=== PATIENT | male | born 1945 | race Caucasian/White ===

== ENCOUNTER → 2019-11-05 15:51 | Outpatient (BNVA) | payer OTHER, SELFPAY | PROVIDERS: Family Provider Emergency Medicine Emergency Medical Services; Visit Provider Nurse Practitioner Family | DX: R31.0 Gross hematuria (principal) | CPT/HCPCS: 80053; 81001; 84153 ==

== ENCOUNTER → 2019-12-23 11:24 | Outpatient (BNVA) | payer OTHER, SELFPAY | PROVIDERS: Family Provider Emergency Medicine Emergency Medical Services; Visit Provider Urology | DX: R31.0 Gross hematuria (principal); N40.0 Benign prostatic hyperplasia without lower urinary tract symptoms; N42.1 Congestion and hemorrhage of prostate | CPT/HCPCS: 80053; 81001; 88112 ==

== ENCOUNTER 2020-01-08 13:59 | Outpatient (CLI) | payer OTHER, SELFPAY ==
--- NOTE | 2020-01-08 14:15 | US_ITS ---
WS: [id number] RENAL ULTRASOUND REASON FOR EXAM: RENAL U/S@[facility] [place] 01/08/20@2:00PM. APPT TO FOLLOW TECHNIQUE: Grayscale and Doppler ultrasound examination of the kidneys. FINDINGS: Right kidney: Right kidney measures 9.7 cm x 4.9 cm x 4.7 cm. No hydronephrosis Left kidney: Left kidney measures 10.4 cm x 6.7 cm x 6.0 cm. No hydronephrosis The prostate appears to be enlarged measures 5.35 cm. The bladder is contracted. The aorta was normal. A 3.45 x 2.10 x 1.80 cm mass is seen along the right kidney this appears to be solid. US/US renal BI* [id number] IMPRESSION: The right kidney shows a solid lesion greater than 3 cm suggesting a tumor. Con sideration of CT with contrast to evaluate this lesion. The prostate is enlarged.
== END 2020-01-08 14:00 | disposition home or self-care (01) ==
LOC: RAD 14:02
PROVIDERS: PCP Emergency Medicine Emergency Medical Services; Visit Provider Urology
DX: R31.0 Gross hematuria (principal); N28.9 Disorder of kidney and ureter, unspecified; N40.0 Benign prostatic hyperplasia without lower urinary tract symptoms
CPT/HCPCS: 76770; 81001

== ENCOUNTER 2020-02-04 12:42 | Inpatient (IN) | payer OTHER, SELFPAY ==
[2020-02-04] VITALS (9 sets, daily range): BP systolic 108–150; BP diastolic 72–90; PULSE 67–91; RESP 14–20; TEMP 36.4–36.6; O2SAT 96–98; BMI 26.4
--- NOTE | 2020-02-04 13:33 | ED_ITS ---
HPI - GI Bleed General: Chief complaint: GI Bleed Stated complaint: blood in stool Time Seen by Provider: 02/04/20 13:19 History of Present Illness: HPI Narrative: This patient is a 74-year-old gentleman presenting with blood in his stool today. He had a bowel movement at about 1030 which had bright red blood in it. He had chemotherapy last year for multiple myeloma. He has not had any chemotherapy in about a year. He says since having chemotherapy he always has loose stools. The stool itself was not unusual today but the blood is something he has not had before. He was seen by Dr. Boone last month for blood in his urine and is being treated for BPH. He has been on a medication for that for about a month and has had no further hematuria. He takes a baby aspirin but no other blood thinners. He does have a lot of bruising on both arms. He says he does feel a little bit weak and dizzy today but otherwise has been feeling fairly well. complaint: gross hematochezia Onset (ago): hour(s) (3) Associated symptoms: Reports easy bruising and weakness; Denies abdominal pain, chills, fever(s), headache(s), malaise, nausea, rash or vomiting Review of Systems General: Reports: 10 or more systems reviewed and unremarkable except in HPI and below Const: Denies: fever(s), chills, fatigue or malaise Eyes: Denies: change in vision ENMT: Denies: odynophagia Card: Denies: chest pain or swelling of feet/ankles Resp: Denies: dyspnea, productive cough or non-productive cough GI: Denies: abdominal pain, nausea or vomiting : Denies: flank pain Musc: Denies: neck pain or back pain Skin/Breast: Denies: rash Neuro: Denies: headache(s), numbness in extremities or weakness in extremities Yong/Lymph: Reports: easy bruising PFSH ED PFSH: Medical History (Updated 02/04/20 @ 17:38 by Hamzah Larios MD) Gross hematuria History of femur fracture pins placed Multiple myeloma Orthostatic hypertension Peripheral neuropathy Family History (Updated 02/04/20 @ 17:36 by Hamzah Larios MD) Mother , AT AGE 82 Cancer PANCREATIC Father , AT AGE 74 Cancer PROSTATE Brother Cancer Colon cancer Grandmother Cancer Social History Smoking and tobacco status: never smoked Alcohol intake: never Substance/Drug Use: never Adopted: No Caregiver/support person: No Lives independently: No Household members: spouse Marital status: Current occupational status: retired History of recent travel: No Current gender identity: Male Physical Exam Const: COMMON NORMALS: no acute distress, patient oriented x3, no limitations and alert GENERAL APPEARANCE: cooperative and comfortable HENMT: HEAD & SCALP: normal to inspection FACE & SINUS: normal facial exam Eye: GENERAL EYE: appearance normal, both eyes and all related structures Neck/C-Spine: COMMON NORMALS: supple, no meningeal signs and no JVD Chest: COMMONS NORMALS: normal inspection of the chest Resp: COMMON NORMALS: normal respiratory effort, No use of accessory muscles and clear to auscultation bilaterally AUSCULTATION: clear to auscultation bilaterally Cardio: COMMON NORMALS: no JVD, regular rate, regular rhythm and No murmurs present (Cardio) RATE: regular rate RHYTHM: regular rhythm GI: COMMON NORMALS: Normal to inspection, nondistended, normoactive bowel nick nds present, Soft to palpation and non-tender INSPECTION: Yes normal to inspection AUSCULTATION: Yes normoactive bowel sounds PALPATION: Yes Soft to palpation RECTAL EXAM: Yes Abnormal stool present Abnormal stool details: maroon stool, Yes heme positive stool, No hemorrhoids and No Anal fissure(s) present Back/Pelvis: COMMON NORMALS: thoracic and lumbar spine normal to inspection Extremity: COMMON NORMALS: normal to inspection Neuro: COMMON NORMALS: patient oriented x3, moves all extremities, no focal motor deficits and no sensory deficits noted SENSORIUM/ORIENTATION: Yes alert MENINGEAL SIGNS: Yes no meningeal signs Psych: COMMON NORMALS: mental status grossly normal, cooperative and normal affect Skin: COMMON NORMALS: no rashes or lesions noted and turgor normal GENERAL SKIN EXAM: no rashes or lesions noted and turgor normal Course Vital Signs: Vital signs: Vital Signs Temperature 97.6 F 02/04/20 12:51 Pulse Rate 67 02/04/20 17:34 Respiratory Rate 18 02/04/20 17:34 Blood Pressure 137/84 02/04/20 17:34 Pulse Oximetry 97 02/04/20 17:34 MDM - GI Bleed MDM Narrative: Medical decision making narrative: Reported GI bleeding. Patient had an episode at home and has had another episode here in the ER. Stool is melanotic. Abdomen is benign. Hemoglobin is 12 which appears to be his baseline. He does get tachycardic and short of breath with any effort to get up or move around in the bed. At rest his vitals are normal and he appears comfortable. Given his comorbidities and melanotic stool I am going to admit him to the hospital for monitoring, probable colonoscopy. Type and screen is been sent. He was given Protonix IV. Lab Data: Labs: Lab Results 02/04/20 02/04/20 02/04/20 Range/Units 13:42 13:42 13:42 WBC 10.5 H (4.0-10.0) 10^3/ uL RBC 4.07 L (4.1-5.3) 10^6/u L Hgb 12.1 (11.7-16.6) g/dL Hct 39.4 L (42.0-52.0) % MCV 96.8 H (80-94) fL MCH 29.7 (28.0-34.0) pg MCHC 30.7 (30.0-36.0) g/dL RDW 14.0 (12.1-15.1) % Plt Count 263 (130-400) 10^3/c mm MPV 11.7 H (7.4-10.4) fL Lymph % (Auto) Not Reportable Morehouse % (Auto) Not Reportable Lymph # (Auto) Not Reportable Morehouse # (Auto) Not Reportable Nucleated RBC % (a uto) 0 % Total Counted 100 (0-100) Atypical Lymphs % 8.0 H (0-5) % Segmented Neutroph ils 58 % Abs Segm Neuts (Ma n) 6.1 (1.6-7.1) 10/cmm Absolute Lymphocyt es 3.7 H (1.2-3.4) 10^3/c mm Lymphocytes (Manua l) 27 % Monocytes (Manual) 7.0 % Absolute Monocytes 0.7 H (0.1-0.6) 10^3/c mm Nucleated RBCs # 0.0 /100WBC Platelet Estimate Normal (Normal) PT 12.70 (10.5-13.3) SECO NDS INR 0.93 (0.8-1.2) Sodium 139 (136-145) mmol/L Potassium 4.7 (3.5-5.1) mmol/L Chloride 103 (98-107) mmol/L Carbon Dioxide 28 (22-29) mmol/L Anion Gap 12.7 (5-19) BUN 26 H (8-23) mg/dL Creatinine 0.9 (0.7-1.2) mg/dL Glucose 129 H (65-115) mg/dL Calculated Osmolal ity 287 (285-295) mOsm/k g Lactate (0.5-2.2) mmol/L Calcium 9.2 (8.5-10.5) mg/dL Total Bilirubin 0.5 (0.15-1.2) mg/dL AST 17 (0-40) U/L ALT 15 (0-41) U/L Alkaline Phosphata se 102 (40-130) IU/L Total Protein 7.2 (6.6-8.7) g/dL Albumin 3.9 (3.5-5.2) g/dL Globulin 3.3 (1.3-4.6) g/dL Lipase 49 (13-60) U/L Urine Color (Yellow) Urine Appearance (CLEAR) Urine pH (5-7) Ur Specific Gravit y (1.005-1.030) Urine Protein (Negative) Urine Glucose (UA) (Normal) Urine Ketones (Negative) Urine Blood (Negative) Urine Nitrate (Negative) Urine Bilirubin (NEGATIVE) Urine Urobilinogen (Negative) mg/dL Ur Leukocyte Meredith ase (Negative) Blood Type Rho(D) Type Antibody Screen 02/04/20 02/04/20 02/04/20 Range/Units 13:42 13:42 14:10 WBC (4.0-10.0) 10^3/ uL RBC (4.1-5.3) 10^6/u L Hgb (11.7-16.6) g/dL Hct (42.0-52.0) % MCV (80-94) fL MCH (28.0-34.0) pg MCHC (30.0-36.0) g/dL RDW (12.1-15.1) % Plt Count (130-400) 10^3/c mm MPV (7.4-10.4) fL Lymph % (Auto) Morehouse % (Auto) Lymph # (Auto) Morehouse # (Auto) Nucleated RBC % (a uto) % Total Counted (0-100) Atypical Lymphs % (0-5) % Segmented Neutroph ils % Abs Segm Neuts (Ma n) (1.6-7.1) 10/cmm Absolute Lymphocyt es (1.2-3.4) 10^3/c mm Lymphocytes (Manua l) % Monocytes (Manual) % Absolute Monocytes (0.1-0.6) 10^3/c mm Nucleated RBCs # /100WBC Platelet Estimate (Normal) PT (10.5-13.3) SECO NDS INR (0.8-1.2) Sodium (136-145) mmol/L Potassium (3.5-5.1) mmol/L Chloride (98-107) mmol/L Carbon Dioxide (22-29) mmol/L Anion Gap (5-19) BUN (8-23) mg/dL Creatinine (0.7-1.2) mg/dL Glucose (65-115) mg/dL Calculated Osmolal ity (285-295) mOsm/k g Lactate 2.2 (0.5-2.2) mmol/L Calcium (8.5-10.5) mg/dL Total Bilirubin (0.15-1.2) mg/dL AST (0-40) U/L ALT (0-41) U/L Alkaline Phosphata se (40-130) IU/L Total Protein (6.6-8.7) g/dL Albumin (3.5-5.2) g/dL Globulin (1.3-4.6) g/dL Lipase (13-60) U/L Urine Color Yellow (Yellow) Urine Appearance Clear (CLEAR) Urine pH 5 (5-7) Ur Specific Gravit y 1.025 (1.005-1.030) Urine Protein Neg (Negative) Urine Glucose (UA) Norm (Normal) Urine Ketones Negative (Negative) Urine Blood Neg (Negative) Urine Nitrate Negative (Negative) Urine Bilirubin 1+ H (NEGATIVE) Urine Urobilinogen Norm (Negative) mg/dL Ur Leukocyte Meredith ase Negative (Negative) Blood Type O Positive Rho(D) Type Positive Antibody Screen Negative Discharge Plan Discharge Patient Disposition: Admitted As Inpatient Admit Provider: Hamzah Larios Clinical Impression: Melena Condition: Stable Referrals: Sumit Louie, [Primary Care Provider] - Coding Level of Care Code ED Jewel Hole Finish Opener for Chg Fwd Exam Comprehensive
[2020-02-04] MEDS: pantoprazole 40 mg SDV 80 MG IVP (13:47)
[2020-02-04] MEDS: sodium chloride 0.9% 500 ML 999 ML IV (13:50)
[2020-02-04 13:54] LABS: Hematocrit 39.4 % (42.0-52.0); Hemoglobin 12.1 g/dL (11.7-16.6); Mean Corpuscular HGB Conc 30.7 g/dL (30.0-36.0); Mean Corpuscular Hemoglobin 29.7 pg (28.0-34.0); Mean Corpuscular Volume 96.8 fL (80-94); Mean Platelet Volume 11.7 fL (7.4-10.4); Nucleated Red Blood Cells % 0 %; Platelet Count 263 10^3/cmm (130-400); Red Blood Count 4.07 10^6/uL (4.1-5.3); White Blood Count 10.5 10^3/uL (4.0-10.0)
[2020-02-04 14:02] LABS: INR 0.93 (0.8-1.2)
[2020-02-04 14:11] LABS: Alanine Aminotransferase 15 U/L (0-41); Albumin Level 3.9 g/dL (3.5-5.2); Alkaline Phosphatase 102 IU/L (40-130); Anion Gap 12.7 (5-19); Aspartate Amino Transferase 17 U/L (0-40); Blood Urea Nitrogen 26 mg/dL (8-23); Calcium 9.2 mg/dL (8.5-10.5); Carbon Dioxide 28 mmol/L (22-29); Chloride 103 mmol/L (98-107); Globulin 3.3 g/dL (1.3-4.6); Glucose 129 mg/dL (65-115); Lipase 49 U/L (13-60); Osmolality Calculated 287 mOsm/kg (285-295); Potassium 4.7 mmol/L (3.5-5.1); Sodium 139 mmol/L (136-145); Total Bilirubin 0.5 mg/dL (0.15-1.2); Total Protein 7.2 g/dL (6.6-8.7)
[2020-02-04 14:12] LABS: Lactate (Lactic Acid level) 2.2 mmol/L (0.5-2.2)
[2020-02-04 14:21] LABS: Add Urine Microscopic? NO
[2020-02-04 14:24] LABS: Bilirubin Urine 1+ (NEGATIVE); Blood Urine Neg (Negative); Glucose Urine UA Norm (Normal); Ketones Urine Negative (Negative); Leukocyte Esterase Urine Negative (Negative); Nitrate Urine Negative (Negative); Protein Urine Neg (Negative); Specific Gravity, Urine 1.025 (1.005-1.030); Urine Appearance Clear (CLEAR); Urine Color Yellow (Yellow); Urobilinogen Urine Norm (Negative); pH Urine 5 (5-7)
[2020-02-04 14:35] LABS: Slide Review Slide Review Perform
[2020-02-04 14:50] LABS: Absolute Segmented Neutrophil 6.1 10/cmm (1.6-7.1); Lymphocytes 27 %; Lymphocytes Absolute 3.7 10^3/cmm (1.2-3.4); Monocytes Absolute 0.7 10^3/cmm (0.1-0.6); Platelet Estimate Normal (Normal); Segmented Neutrophils 58 %; Total Cells Counted 100 (0-100)
--- NOTE | 2020-02-04 16:27 | PC.NURSE ---
Pt states he had a bloody stool at 1530, he states it was not as bad as the bloody stool he had previously today. This nurse did not observe the stool. Pt states he is not having any pain at this time. Pt is alert, oriented and stable, no s/s of distress noted.
--- NOTE | 2020-02-04 17:30 | PM.HP ---
Providers/Chief Complaint Primary Care Provider: Sumit Louie DO Chief Complaint: blood in stool History of Present Illness Thanh Starks is a 74 year old male with a past medical history of multiple myeloma, BPH, syncope on midodrine, history of femur fracture, who had a colonoscopy 10 years ago, benign polyps removed, no history of upper GI bleed, not on blood thinners, takes a baby aspirin, denies NSAID use, who comes to the emergency room due to complaints of bloody stool. Patient states that this afternoon, he had a bowel movement, when he noticed that he pooped out bright red blood, with clots in it, the blood filled the toilet bowl. Also his stool had bits of blood in it. Denies a history of bloody stools in the past. He states that through the [place] that he gets Hemoccults yearly, which have been negative, last negative was 2 years ago. Colonoscopy 10 years ago showed but 2 benign polyps which were removed. Follow-up was within 10 years. Recently he has been complaining of fatigue, weakness, no weight loss, has been feeling a bit lightheaded and dizzy more than usual. Does have a history of multiple myeloma, he finished his chemotherapy in January of last year. According to family he is in remission. Last meal was at 2 PM today. Currently doing well, no repeat episode of black or bloody black stools, no lightheaded, no dizziness, no chest pain, no shortness of breath, work-up in the ER showed hemoglobin of 12.1, INR 0.93, BUN 26, no hypotensive episodes. Hospitalist team was called for admission. Review of Systems Const: Denies: fever(s), chills, fatigue or malaise Eyes: Denies: change in vision or blurry vision ENMT: Denies: nasal congestion Resp: Denies: dyspnea, productive cough, non-productive cough or wheezing GI: Denies: abdominal pain, nausea, vomiting, hematemesis, diarrhea, constipation or hematochezia : Denies: flank pain, difficulty urinating, dysuria or urinary frequency Musc: Denies: neck pain or back pain Skin/Breast: Denies: rash Neuro: Denies: headache(s), dizziness or vertigo Psych: Denies: anxiety or depression Endo: Denies: polyuria or polydipsia Medications/Allergies Home Medications Medication Instructions Recorded Confirmed Last Taken Type aspirin 81 mg tablet,delayed 81 mg PO DAILY 11/05/19 02/04/20 02/04/20 History release meclizine 25 mg tablet 25 mg PO TID PRN 11/05/19 02/04/20 Unknown History midodrine 5 mg tablet 5 mg PO TID 11/05/19 02/04/20 02/04/20 History multivitamin,[id number]-kdyy-[id number] 1 tab PO DAILY 11/05/19 02/04/20 02/04/20 History potassium chloride 10 mEq See Rx Instructions .ROUTE .COMPLEX 11/05/19 02/04/20 02/03/20 History tablet,extended release pregabalin 75 mg capsule 75 mg PO TID 11/05/19 02/04/20 02/04/20 History Imodium A-D 1 - 2 tab PO PRN 02/04/20 02/04/20 Unknown History acetaminophen [Tylenol Extra 1,000 mg PO PRN 02/04/20 02/04/20 Unknown History Strength] dexamethasone See Rx Instructions .ROUTE .COMPLEX 02/04/20 02/04/20 Unknown History diphenhydramine HCl [Benadryl] 25 mg PO BEDTIME PRN 02/04/20 02/04/20 Unknown History docusate sodium [Colace] 100 mg PO PRN 02/04/20 02/04/20 Unknown History finasteride 5 mg PO DAILY 02/04/20 02/04/20 02/04/20 History magnesium oxide 400 mg PO BEDTIME 02/04/20 02/04/20 02/03/20 History Allergies Allergy/AdvReac Type Severity Reaction Status Date / Time furosemide [From Lasix] AdvReac ADR-Cramping Verified 02/04/20 13:52 of the Muscles PFSH Acute PFSH: Medical History Gross hematuria History of femur fracture pins placed Multiple myeloma Orthostatic hypertension Peripheral neuropathy Family History (Updated 02/04/20 @ 17:36 by Hamzah Larios MD) Mother , AT AGE 82 Cancer PANCREATIC Father , AT AGE 74 Cancer PROSTATE Brother Cancer Colon cancer Grandmother Cancer Social History Smoking and tobacco status: never smoked Alcohol intake: never Substance/Drug Use: never Adopted: No Caregiver/support person: No Lives independently: No Household members: spouse Marital status: Current occupational status: retired History of recent travel: No Current gender identity: Male Vitals/I&O/Wt Last Vital Signs Temp 97.6 F 02/04/20 12:51 Pulse 69 02/04/20 16:29 Resp 18 02/04/20 16:29 BP 114/76 02/04/20 16:29 Pulse Ox 96 02/04/20 16:29 02/04/20 02/04/20 02/04/20 06:59 14:59 22:59 Intake Total 500 / 500 Balance 500 / 500 Weight last 48 hrs Weight 96.162 kg Physical Exam Const: COMMON NORMALS: no acute distress and patient oriented x3 GENERAL APPEARANCE: cooperative and comfortable HENMT: COMMON NORMALS: normocephalic HEAD & SCALP: normocephalic Eye: COMMON NORMALS: Equal, round and reactive pupils present and EOMs intact bilaterally GENERAL EYE: appearance normal, both eyes and all related structures PUPIL: Yes Equal, round and reactive pupils present Neck/C-Spine: COMMON NORMALS: full ROM, no lymphadenopathy, no JVD and Thyroid normal THYROID: Thyroid normal Lymph: LYMPHATIC: no lymphadenopathy noted Resp: COMMON NORMALS: normal respiratory effort, No retractions, No use of accessory muscles and clear to auscultation bilaterally AUSCULTATION: clear to auscultation bilaterally Cardio: COMMON NORMALS: no JVD, regular rate, regular rhythm, S1 normal heart sound present, S2 normal heart sound present, No gallops present (Cardio), No clicks present (Cardio) and No murmurs present (Cardio) RATE: regular rate RHYTHM: regular rhythm HEART SOUNDS: S1 normal heart sound present and S2 normal heart sound present GI: COMMON NORMALS: Normal to inspection, nondistended, normoactive bowel sounds present, Soft to palpation, non-tender and No hepatosplenomegaly present PALPATION: Yes Soft to palpation and Yes No hepatosplenomegaly present Extremity: COMMON NORMALS: normal to inspection, full ROM and no pedal edema Neuro: COMMON NORMALS: patient oriented x3, CN's II-XII intact bilaterally, moves all extremities and no focal motor deficits Psych: COMMON NORMALS: mental status grossly normal, Normal thought process present and cooperative THOUGHT PROCESS: Normal thought process present Data : 02/04/20 13:42 02/04/20 13:42 A&P Assessment and plan (1) Lower GI bleed: -History of diverticulosis in the past -Colonoscopy 10 years ago showed 2 benign polyps, follow-up 10 years -Hemoccults yearly, negative, last done was 2 years ago negative, -No history of bloody stools in the past -Bright red blood per rectum with clots, no melanotic stools -No history of EGD, no naproxen use, no NSAID use, does use aspirin -Hemoglobin 12.1, INR 0.93, no hemodynamic compromise, -Does have a history of syncope with low blood pressure that is why is on midodrine -Currently doing well Plan: -Admit to general medical floors -Clear liquid diet -Monitor for bloody or black stools -Monitor for hemodynamics carefully -Hemoglobins every 6 hours -If hemoglobin stabilizes or remains with normal within the next 24 hours, no more bloody or black stools, likely discharge with outpatient follow-up with general surgery for colonoscopy -If patient becomes symptomatic, hemoglobin drops, will consult Dr. Garza, I did speak to Dr. Jazmine Garza, he can possibly scope patient on , if there are concerns or urgent need for colonoscopy -Full code -SCDs for DVT prophylaxis Status: Acute (2) Melena: Status: Acute (3) Multiple myeloma: Status: Acute (4) Syncope: Status: Acute Attestations Medical Necessity Statement*: She requires hospitalization, outpatient with observation, for GI bleed, lower Coding Level of Care Code Acute Maintenance Custodian for [facility] Diagnoses Lower GI bleed K92.2 Melena K92.1 Multiple myeloma C90.00 Syncope R55
--- NOTE | 2020-02-04 17:31 | PC.NURSE ---
Dr. Larios has been in to see pt, waiting on room assignment for in house transfer at this time. Pt alert, oriented and stable. Spouse at bedside at this time. Pt denies any further needs.
--- NOTE | 2020-02-04 19:12 | PC.NURSE ---
This nurse attempted to call report to ICU at 1820, nurse off unit and unavailable to take report at this time. Attempted to call report to ICU at 1850, nurse unavailable to take report at this time. Attempted to call report to ICU at 1905, nurse unavailable to take report at this time. Report given to Philipp RN in ER to pass on to ICU staff at this time.
--- NOTE | 2020-02-04 19:16 | PC.NURSE ---
This nurse attempted to call report to ICU at this time, nurse unavailable to take report. ICU staff told this nurse they will call back to receive report.
--- NOTE | 2020-02-04 19:27 | PC.NURSE ---
HR OF 166BPM INFORMED DR. ALBARRAN VERBALIZED UNDERSTANDING VO FOR VM'S. ATTEMPTED PT HR NO CHANGE. INFORMED DR. ALBARRAN VERBALIZED UNDERSTANDING NO FURTHER ORDERS.
[2020-02-05 00:15] LABS: Hematocrit 35.7 % (42.0-52.0); Hemoglobin 11.1 g/dL (11.7-16.6)
[2020-02-05] MEDS: dextrose 5%-sod chloride 0.45% 1,000 ML 75 ML IV ×2 (00:22→15:03)
[2020-02-05] MEDS: midodrine 5 mg TABLET PO ×4 (00:22→20:26)
[2020-02-05] MEDS: pregabalin 75 mg Capsule PO ×4 (00:22→20:27)
[2020-02-05 00:26] LABS: Thyroid Stimulating Hormone 3.73 uIU/mL (0.27-4.20)
[2020-02-05 04:00] VITALS: BP 131/75; PULSE 62; RESP 18; TEMP 36.4; O2SAT 97
[2020-02-05 06:04] LABS: INR 0.82 (0.8-1.2)
[2020-02-05 06:09] LABS: Alanine Aminotransferase 13 U/L (0-41); Albumin Level 3.8 g/dL (3.5-5.2); Alkaline Phosphatase 97 IU/L (40-130); Blood Urea Nitrogen 25 mg/dL (8-23); Calcium 8.6 mg/dL (8.5-10.5); Carbon Dioxide 26 mmol/L (22-29); Chloride 103 mmol/L (98-107); Globulin 2.1 g/dL (1.3-4.6); Glucose 94 mg/dL (65-115); Magnesium 2.1 mg/dL (1.7-2.3); Osmolality Calculated 283 mOsm/kg (285-295); Phosphorus 3.6 mg/dL (2.5-4.5); Sodium 138 mmol/L (136-145); Total Bilirubin 0.7 mg/dL (0.15-1.2); Total Protein 5.9 g/dL (6.6-8.7)
[2020-02-05 06:22] LABS: Anion Gap 13.5 (5-19); Aspartate Amino Transferase 26 U/L (0-40); Potassium 4.5 mmol/L (3.5-5.1)
[2020-02-05 07:34] LABS: Basophils # 0.1 10^3/uL (0.0-0.1); Basophils % 0.6 %; Eosinophils # 0.1 10^3/uL (0.0-0.8); Eosinophils % 1.3 %; Hemoglobin 11.1 g/dL (11.7-16.6); Lymphocytes % 47.2 %; Mean Corpuscular HGB Conc 31.7 g/dL (30.0-36.0); Mean Corpuscular Hemoglobin 30.4 pg (28.0-34.0); Mean Corpuscular Volume 95.9 fL (80-94); Mean Platelet Volume 11.3 fL (7.4-10.4); Monocytes # 0.6 10^3/uL (0.2-0.9); Monocytes % 6.5 %; Neutrophils # 3.75 10^3/uL (1.8-7.7); Neutrophils % 43.9 %; Nucleated Red Blood Cells % 0 %; Platelet Count 241 10^3/cmm (130-400); Red Blood Count 3.65 10^6/uL (4.1-5.3); Red Cell Distribution Width 13.8 % (12.1-15.1); White Blood Count 8.5 10^3/uL (4.0-10.0)
[2020-02-05 07:56] VITALS: BP 161/97; PULSE 80; RESP 18; TEMP 36.9; O2SAT 99
[2020-02-05] MEDS: pantoprazole 40 mg SDV IVP ×2 (08:49→18:23)
--- NOTE | 2020-02-05 09:45 | PC.CHAP ---
Pastoral Care Encounter/Spiritual Assessment Type of Contact [] Declined store operations associate visit [] Patient/Family/Request visit [] Outpatient visit [] Follow-up visit [] Physician referral [] Code/Alert [x] Routine visit [] Staff referral [] Actively dying [] Patient sleeping [] Family support [] [] Out of room [] Palliative care [] [] Receiving care in room [] Pre-surgical visit [] Trauma [] Long length of stay [] ICU visit [] Other: Relational/Emotional Strength [] Patient feels connected with others/family/visitors/staff [] Distress [] Loneliness/isolation [] Abandonment Spirituality of Patient [] Person of Symone [] Attends Buddhist of their Symone [] Believes in Prayer [] Reads Bible or Church materials [] There are Spiritual issues to be addressed Pre Sales Network Engineer Interventions [x] Prayer [x] Active listening [x] Non-anxious presence [x] Spiritual/emotional support [] Crisis/trauma care [] Spiritual counseling [] Bereavement support [] Provided bereavement packet [] Provided Bible/devotional materials [] Provided toy/stuffed animal, coloring book to patient or family member [] Provided Communion [] Anointing/[place] [] Salvation [x] Completed spiritual assessment [] Other: Impact on Illness or Injury [] Angry [] Fearful [] Anxious [] Often cries [] Exhaustion [] Unable to work [] Unable to attend temple [] Unable to walk/stand [] Unable to read [] Unable to drive [] Unable to eat/drink [] Unable to sleep [] Unable to be with family [] Patient intubated [] Other: Summary Patient feeling a little weak... Time spent with patient 10 min
[2020-02-05 11:11] VITALS: BP 146/79; PULSE 64; RESP 18; TEMP 36.4; O2SAT 97
[2020-02-05 12:27] LABS: Hematocrit 36.4 % (42.0-52.0); Hemoglobin 11.3 g/dL (11.7-16.6)
[2020-02-05 14:50] VITALS: BP 143/86; PULSE 64; RESP 20; TEMP 36.4; O2SAT 96
--- NOTE | 2020-02-05 16:54 | P.PN_ITS ---
Subjective Subjective: Interval history: no acute events, hemodynamically stable, he had has 3 BM today, states that first one this morning was semi solid with blood streaking, subsequently 2 loose BM, very anxious about returning home. Hb stable Medications: Reviewed: Yes Vitals/I&O/Wt Last Vital Signs Temp 97.6 F 02/05/20 14:50 Pulse 64 02/05/20 14:50 Resp 20 H 02/05/20 14:50 BP 143/86 02/05/20 14:50 Pulse Ox 96 02/05/20 14:50 02/05/20 02/05/20 02/05/20 06:59 14:59 22:59 Intake Total 1360 / 1360 Output Total 525 / 525 Balance -525 / -25 1360 / 1360 Weight last 48 hrs Weight 96.162 kg Data : 02/05/20 12:20 02/05/20 05:48 A&P Assessment and plan (1) Lower GI bleed: -History of diverticulosis in the past -Colonoscopy 10 years ago showed 2 benign polyps, follow-up 10 years -Hemoccults yearly, negative, last done was 2 years ago negative, -No history of bloody stools in the past -Bright red blood per rectum with clots,today reports balck colored loose stools, HB is stable. -Hemoglobin 12.1--> 11.3 -Does have a history of syncope with low blood pressure that is why is on midodrine -Continue clear liquid diet -Discussed with Dr. Garza, planned for Colonoscopy tomorrow. -SCDs for DVT prophylaxis Full code NPO post midnight Status: Acute (2) Melena: Status: Acute (3) Multiple myeloma: Status: Acute (4) Syncope: Status: Acute Attestations Medical Necessity Statement*: colonoscopy tomorrow Coding Level of Care Code Acute Operations Vice President for [facility]ailyn Diagnoses Lower GI bleed K92.2 Melena K92.1 Multiple myeloma C90.00 Syncope R55
--- NOTE | 2020-02-05 17:39 | PM.CONSULT ---
Providers/Reason For Consult Attending Physician: Karol Alvarado MD Primary Care Provider: Sumit Louie DO History of Present Illness History of Present Illness Thanh Starks is a 74 year old male Meds/Allergies Home Medications and Allergies Home Medications Medication Instructions Recorded Confirmed Last Taken Type aspirin 81 mg tablet,delayed 81 mg PO DAILY 11/05/19 02/04/20 02/04/20 History release meclizine 25 mg tablet 25 mg PO TID PRN 11/05/19 02/04/20 Unknown History midodrine 5 mg tablet 5 mg PO TID 11/05/19 02/04/20 02/04/20 History multivitamin,rp-[id number]-[id number] 1 tab PO DAILY 11/05/19 02/04/20 02/04/20 History potassium chloride 10 mEq See Rx Instructions .ROUTE .COMPLEX 11/05/19 02/04/20 02/03/20 History tablet,extended release pregabalin 75 mg capsule 75 mg PO TID 11/05/19 02/04/20 02/04/20 History Imodium A-D 1 - 2 tab PO PRN 02/04/20 02/04/20 Unknown History acetaminophen [Tylenol Extra 1,000 mg PO PRN 02/04/20 02/04/20 Unknown History Strength] dexamethasone See Rx Instructions .ROUTE .COMPLEX 02/04/20 02/04/20 Unknown History diphenhydramine HCl [Benadryl] 25 mg PO BEDTIME PRN 02/04/20 02/04/20 Unknown History docusate sodium [Colace] 100 mg PO PRN 02/04/20 02/04/20 Unknown History finasteride 5 mg PO DAILY 02/04/20 02/04/20 02/04/20 History magnesium oxide 400 mg PO BEDTIME 02/04/20 02/04/20 02/03/20 History Allergies Allergy/AdvReac Type Severity Reaction Status Date / Time furosemide [From Lasix] AdvReac ADR-Cramping Verified 02/04/20 13:52 of the Muscles Current Medications Current Medications Generic Name Dose Route Start Last Admin Trade Name Freq PRN Reason Stop Dose Admin Dextrose/Sodium Chloride 1,000 mls @ 75 mls/hr 02/04/20 23:41 02/05/20 15:03 Dextrose 5%-Sod Chloride 0.45% IV 75 mls/hr .[id number] MALICK Administration Midodrine 5 mg 02/04/20 23:41 02/05/20 15:08 Proamatine PO 5 mg TID MALICK Administration Pantoprazole Sodium 40 mg 02/05/20 09:00 02/05/20 08:49 Protonix IVP 40 mg BID MALICK Administration Pregabalin 75 mg 02/04/20 23:41 02/05/20 15:08 Lyrica PO 75 mg TID MALICK Administration PFSH Acute PFSH: Medical History (Updated 02/04/20 @ 17:38 by Hamzah Larios MD) Gross hematuria History of femur fracture pins placed Multiple myeloma Orthostatic hypertension Peripheral neuropathy Family History (Updated 02/04/20 @ 17:36 by Hamzah Lraios MD) Mother , AT AGE 82 Cancer PANCREATIC Father , AT AGE 74 Cancer PROSTATE Brother Cancer Colon cancer Grandmother Cancer Social History Smoking and tobacco status: never smoked Alcohol intake: never Substance/Drug Use: never Adopted: No Caregiver/support person: No Lives independently: No Household members: spouse Marital status: Current occupational status: retired History of recent travel: No Current gender identity: Male Vitals/I&O/Wt Last Vital Signs Temp 97.6 F 02/05/20 14:50 Pulse 64 02/05/20 14:50 Resp 20 H 02/05/20 14:50 BP 143/86 02/05/20 14:50 Pulse Ox 96 02/05/20 14:50 02/05/20 02/05/20 02/05/20 06:59 14:59 22:59 Intake Total 1360 / 1360 Output Total 525 / 525 Balance -525 / -25 1360 / 1360 Weight last 48 hrs Weight 212 lb Coding Level of Care Code 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
[2020-02-05 18:22] LABS: Hematocrit 35.1 % (42.0-52.0)
[2020-02-05] MEDS: magnesium citrate Btl 296 mL PO ×2 (18:23→20:26)
[2020-02-05 20:00] VITALS: BP 117/78; PULSE 71; RESP 18; TEMP 36.6; O2SAT 98
[2020-02-05] MEDS: sodium chloride 0.9% 1,000 ML 30 ML IV (20:26)
[2020-02-05] MEDS: bisacodyl 5 mg Tablet 40 MG PO (20:26)
[2020-02-05 23:56] LABS: Hematocrit 37.8 % (42.0-52.0); Hemoglobin 11.9 g/dL (11.7-16.6)
[2020-02-06] VITALS (130 sets, daily range): BP systolic 94–134; BP diastolic 63–88; PULSE 60–100; RESP 12–28; TEMP 36.2–37.5; O2SAT 88–98
[2020-02-06 06:26] LABS: Basophils # 0.1 10^3/uL (0.0-0.1); Basophils % 0.8 %; Eosinophils # 0.1 10^3/uL (0.0-0.8); Eosinophils % 0.7 %; Hematocrit 39.2 % (42.0-52.0); Hemoglobin 12.5 g/dL (11.7-16.6); Lymphocytes # 3.5 10^3/uL (0.8-4.8); Lymphocytes % 40.5 %; Mean Corpuscular HGB Conc 31.9 g/dL (30.0-36.0); Mean Corpuscular Hemoglobin 30.3 pg (28.0-34.0); Mean Corpuscular Volume 94.9 fL (80-94); Mean Platelet Volume 11.9 fL (7.4-10.4); Monocytes # 0.5 10^3/uL (0.2-0.9); Monocytes % 5.7 %; Neutrophils # 4.54 10^3/uL (1.8-7.7); Neutrophils % 51.8 %; Nucleated Red Blood Cells % 0 %; Platelet Count 276 10^3/cmm (130-400); Red Blood Count 4.13 10^6/uL (4.1-5.3); Red Cell Distribution Width 13.8 % (12.1-15.1); White Blood Count 8.8 10^3/uL (4.0-10.0)
[2020-02-06 06:34] LABS: Alanine Aminotransferase 17 U/L (0-41); Albumin Level 4.1 g/dL (3.5-5.2); Alkaline Phosphatase 108 IU/L (40-130); Aspartate Amino Transferase 21 U/L (0-40); Blood Urea Nitrogen 18 mg/dL (8-23); Calcium 8.9 mg/dL (8.5-10.5); Carbon Dioxide 22 mmol/L (22-29); Chloride 105 mmol/L (98-107); Globulin 3.5 g/dL (1.3-4.6); Glucose 106 mg/dL (65-115); Magnesium 3.1 mg/dL (1.7-2.3); Osmolality Calculated 283 mOsm/kg (285-295); Phosphorus 4.5 mg/dL (2.5-4.5); Sodium 138 mmol/L (136-145); Total Bilirubin 0.8 mg/dL (0.15-1.2); Total Protein 7.6 g/dL (6.6-8.7)
[2020-02-06 07:09] LABS: INR 0.97 (0.8-1.2)
--- NOTE | 2020-02-06 08:50 | PC.NURSE ---
Patient up to BR, by self. Patient states his last BM was light green in color and liquid.
--- NOTE | 2020-02-06 09:50 | PM.CONSULT ---
Providers/Reason For Consult Consulting Physican/Specialty*: Dr. Alvarado Reason for Consult*: gi bleed Attending Physician: Karol Alvarado MD Primary Care Provider: Sumit Louie DO History of Present Illness History of Present Illness Thanh Starks is a 74 year old male with history of multiple myeloma who presented to the ER with bloody bowel movement. Patient's hemoglobin is noted to be around 12. He states that his last colonoscopy was 10 years ago and couple of polyps were removed. Patient denies any significant abdominal pain, nausea, vomiting, hematemesis, NSAID use. Denies any significant diarrhea. He was admitted to the hospital overnight and continued to have bleeding per rectum. He is otherwise hemodynamically stable. Review of Systems General: Reports: 10 or more systems reviewed and unremarkable except in HPI and below Meds/Allergies Home Medications and Allergies Home Medications Medication Instructions Recorded Confirmed Last Taken Type aspirin 81 mg tablet,delayed 81 mg PO DAILY 11/05/19 02/04/20 02/04/20 History release meclizine 25 mg tablet 25 mg PO TID PRN 11/05/19 02/04/20 Unknown History midodrine 5 mg tablet 5 mg PO TID 11/05/19 02/04/20 02/04/20 History multivitamin,as-pnlf-ybgpeivn 1 tab PO DAILY 11/05/19 02/04/20 02/04/20 History potassium chloride 10 mEq See Rx Instructions .ROUTE .COMPLEX 11/05/19 02/04/20 02/03/20 History tablet,extended release pregabalin 75 mg capsule 75 mg PO TID 11/05/19 02/04/20 02/04/20 History Imodium A-D 1 - 2 tab PO PRN 02/04/20 02/04/20 Unknown History acetaminophen [Tylenol Extra 1,000 mg PO PRN 02/04/20 02/04/20 Unknown History Strength] dexamethasone See Rx Instructions .ROUTE .COMPLEX 02/04/20 02/04/20 Unknown History diphenhydramine HCl [Benadryl] 25 mg PO BEDTIME PRN 02/04/20 02/04/20 Unknown History docusate sodium [Colace] 100 mg PO PRN 02/04/20 02/04/20 Unknown History finasteride 5 mg PO DAILY 02/04/20 02/04/20 02/04/20 History magnesium oxide 400 mg PO BEDTIME 02/04/20 02/04/20 02/03/20 History Allergies Allergy/AdvReac Type Severity Reaction Status Date / Time furosemide [From Lasix] AdvReac ADR-Cramping Verified 02/04/20 13:52 of the Muscles Current Medications Current Medications Generic Name Dose Route Start Last Admin Trade Name Freq PRN Reason Stop Dose Admin Dextrose/Sodium Chloride 1,000 mls @ 75 mls/hr 02/04/20 23:41 02/05/20 23:29 Dextrose 5%-Sod Chloride 0.45% IV Not Given .[id number] MALICK Sodium Chloride 1,000 mls @ 30 mls/hr 02/05/20 17:39 02/05/20 20:26 Sodium Chloride 0.9% IV 02/06/20 17:38 30 mls/hr .Q24H ONE Administration Midodrine 5 mg 02/04/20 23:41 02/05/20 20:26 Proamatine PO 5 mg TID MALICK Administration Pantoprazole Sodium 40 mg 02/05/20 09:00 02/05/20 18:23 Protonix IVP 40 mg BID MALICK Administration Pregabalin 75 mg 02/04/20 23:41 02/05/20 20:27 Lyrica PO 75 mg TID MALICK Administration PFSH Acute PFSH: Medical History Gross hematuria History of femur fracture pins placed Multiple myeloma Orthostatic hypertension Peripheral neuropathy Surgical History (Updated 02/06/20 @ 09:55 by Agusto Garza MD) Status post colonoscopy with polypectomy Family History Mother , AT AGE 82 Cancer PANCREATIC Father , AT AGE 74 Cancer PROSTATE Brother Cancer Colon cancer Grandmother Cancer Social History Smoking and tobacco status: never smoked Alcohol intake: never Substance/Drug Use: never Adopted: No Caregiver/support person: No Lives independently: No Household members: spouse Marital status: Current occupational status: retired History of recent travel: No Current gender identity: Male Vitals/I&O/Wt Last Vital Signs Temp 97.5 F L 02/06/20 07:59 Pulse 63 02/06/20 07:59 Resp 18 02/06/20 07:59 BP 128/77 02/06/20 07:59 Pulse Ox 97 02/06/20 07:59 02/05/20 02/06/20 02/06/20 22:59 06:59 14:59 Intake Total 413.75 / 1773.75 Output Total 200 / 200 Balance 213.75 / 1573.75 Weight last 48 hrs Weight 212 lb Physical Exam Narrative: EXAM NARRATIVE: HEENT: Normocephalic Eye: Sclera /conjunctiva normal Abdomen: Soft to palpation Neurological: Oriented to place person and time Skin: Intact, no lesions appreciated on gross exam A&P Assessment and plan (1) Lower GI bleed: 74-year-old male with history of multiple myeloma who presents with GI bleed. Plan for EGD/colonoscopy under MAC Procedure, risks, benefits and alternatives have been discussed with the patient who wishes to proceed with surgery. Status: Acute Coding Level of Care Code Acute [employer] for [facility] Fwd Diagnoses Lower GI bleed K92.2
--- NOTE | 2020-02-06 10:14 | PC.NURSE ---
Patient to GI Lab for EGD/colonoscopy.
--- NOTE | 2020-02-06 10:25 | ANES.PREANE2 ---
Pre-Anesthetic Assessment Pre-Anesthetic Assessment: Height/Weight: Height 1.91 m Weight 96.162 kg Temp Pulse Resp BP Pulse Ox 97.5 F L 63 18 128/77 97 02/06/20 07:59 02/06/20 07:59 02/06/20 07:59 02/06/20 07:59 02/06/20 07:59 Preop Diagnosis: gi bleed Proposed Procedure: Operation Date: 02/06/20 10:55 Proposed Procedures p EGD(Not Applicable) - Agusto Garza MD s Colonoscopy(Not Applicable) - Agusto Garza MD Familial anesthetic complications: none Was Beta Romaine taken within 24 hours: N/A Last intake: NPO > 8 hrs Social: Social History: No alcohol and No tobacco Exam: Pre-Anes Outpt Exam: alert, oriented x 3, clear to auscultation bilaterally and regular rate & rhythm Airway: Cervical ROM: WNL MP: 2 Dentition: Other (missing) Pulmonary: Pulmonary: Sleep apnea CV/HEM: CV/HEM: HTN : : None reported Hepatic: Hepatic: None reported GI: GI: None reported Metabolic: Metabolic: None reported Musc/skel: Musc/skel: None reported Neuropsych: Neuropsych: Neuropathy Anesthetic Plan: ASA status: 2 Anesthesia: MAC Risk of > 500 ml blood loss (7ml/kg in children): No Meds/Allergies Current Medications: Current Medications Generic Name Dose Route Start Last Admin Trade Name Freq PRN Reason Stop Dose Admin Dextrose/Sodium Ch loride 1,000 mls @ 75 ml s/hr 02/04/20 23:41 02/05/20 23:29 Dextrose 5%-Sod Chloride 0.45% IV Not Given .[id number] MALICK Sodium Chloride 1,000 mls @ 30 ml s/hr 02/05/20 17:39 02/05/20 20:26 Sodium Chloride 0.9% IV 02/06/20 17:38 30 mls/hr .Q24H ONE Administration Midodrine 5 mg 02/04/20 23:41 02/05/20 20:26 Proamatine PO 5 mg TID MALICK Administration Pantoprazole Sodiu m 40 mg 02/05/20 09:00 02/05/20 18:23 Protonix IVP 40 mg BID MALICK Administration Pregabalin 75 mg 02/04/20 23:41 02/05/20 20:27 Lyrica PO 75 mg TID MALICK Administration PFSH Anesthesia PFSH: Medical History Gross hematuria History of femur fracture pins placed Multiple myeloma Orthostatic hypertension Peripheral neuropathy Surgical History (Updated 02/06/20 @ 09:55 by Agusto Garza MD) Status post colonoscopy with polypectomy Family History Mother , AT AGE 82 Cancer PANCREATIC Father , AT AGE 74 Cancer PROSTATE Brother Cancer Colon cancer Grandmother Cancer Social History Smoking and tobacco status: never smoked Alcohol intake: never Substance/Drug Use: never Adopted: No Caregiver/support person: No Lives independently: No Household members: spouse Marital status: Current occupational status: retired History of recent travel: No Current gender identity: Male Data Anesthesia CBC & Chem 7: 02/06/20 06:00 02/06/20 06:00 Other Labs: Laboratory Results - last 48 hr 02/04/20 02/04/20 02/04/20 13:42 13:42 13:42 WBC 10.5 H Corrected WBC RBC 4.07 L Hgb 12.1 Hct 39.4 L MCV 96.8 H MCH 29.7 MCHC 30.7 RDW 14.0 Plt Count 263 MPV 11.7 H Gran % Neut % (Auto) Lymph % (Auto) Not Reportable Gregory % (Auto) Not Reportable Eos % (Auto) Baso % (Auto) Neut # (Auto) Lymph # (Auto) Not Reportable Gregory # (Auto) Not Reportable Eos # (Auto) Baso # (Auto) Absolute Gran (auto) Nucleated RBC % (auto) 0 Total Counted 100 Atypical Lymphs % 8.0 H Segmented Neutrophils 58 Abs Segm Neuts (Man) 6.1 Absolute Lymphocytes 3.7 H Lymphocytes (Manual) 27 Monocytes (Manual) 7.0 Absolute Monocytes 0.7 H Nucleated RBCs # 0.0 Platelet Estimate Normal PT 12.70 INR 0.93 Sodium 139 Potassium 4.7 Chloride 103 Carbon Dioxide 28 Anion Gap 12.7 BUN 26 H Creatinine 0.9 Glucose 129 H Calculated Osmolality 287 Lactate Calcium 9.2 Phosphorus Magnesium Total Bilirubin 0.5 AST 17 ALT 15 Alkaline Phosphatase 102 Total Protein 7.2 Albumin 3.9 Globulin 3.3 Lipase 49 TSH Urine Color Urine Appearance Urine pH Ur Specific [place] Urine Protein Urine Glucose (UA) Urine Ketones Urine Blood Urine Nitrate Urine Bilirubin Urine Urobilinogen Ur Leukocyte Esterase Blood Type Rho(D) Type Antibody Screen 02/04/20 02/04/20 02/04/20 13:42 13:42 14:10 WBC Corrected WBC RBC Hgb Hct MCV MCH MCHC RDW Plt Count MPV Gran % Neut % (Auto) Lymph % (Auto) Gregory % (Auto) Eos % (Auto) Baso % (Auto) Neut # (Auto) Lymph # (Auto) Gregory # (Auto) Eos # (Auto) Baso # (Auto) Absolute Gran (auto) Nucleated RBC % (auto) Total Counted Atypical Lymphs % Segmented Neutrophils Abs Segm Neuts (Man) Absolute Lymphocytes Lymphocytes (Manual) Monocytes (Manual) Absolute Monocytes Nucleated RBCs # Platelet Estimate PT INR Sodium Potassium Chloride Carbon Dioxide Anion Gap BUN Creatinine Glucose Calculated Osmolality Lactate 2.2 Calcium Phosphorus Magnesium Total Bilirubin AST ALT Alkaline Phosphatase Total Protein Albumin Globulin Lipase TSH Urine Color Yellow Urine Appearance Clear Urine pH 5 Ur Specific [place] 1.025 Urine Protein Neg Urine Glucose (UA) Norm Urine Ketones Negative Urine Blood Neg Urine Nitrate Negative Urine Bilirubin 1+ H Urine Urobilinogen Norm Ur Leukocyte Esterase Negative Blood Type O Positive Rho(D) Type Positive Antibody Screen Negative 02/04/20 02/04/20 02/05/20 23:52 23:52 05:48 WBC Cancelled Corrected WBC Cancelled RBC Cancelled Hgb 11.1 L Cancelled Hct 35.7 L Cancelled MCV Cancelled MCH Cancelled MCHC Cancelled RDW Cancelled Plt Count Cancelled MPV Cancelled Gran % Cancelled Neut % (Auto) Cancelled Lymph % (Auto) Cancelled Gregory % (Auto) Cancelled Eos % (Auto) Cancelled Baso % (Auto) Cancelled Neut # (Auto) Cancelled Lymph # (Auto) Cancelled Gregory # (Auto) Cancelled Eos # (Auto) Cancelled Baso # (Auto) Cancelled Absolute Gran (auto) Cancelled Nucleated RBC % (auto) Cancelled Total Counted Atypical Lymphs % Segmented Neutrophils Abs Segm Neuts (Man) Absolute Lymphocytes Lymphocytes (Manual) Monocytes (Manual) Absolute Monocytes Nucleated RBCs # Cancelled Platelet Estimate PT INR Sodium Potassium Chloride Carbon Dioxide Anion Gap BUN Creatinine Glucose Calculated Osmolality Lactate Calcium Phosphorus Magnesium Total Bilirubin AST ALT Alkaline Phosphatase Total Protein Albumin Globulin Lipase TSH 3.73 Urine Color Urine Appearance Urine pH Ur Specific [place] Urine Protein Urine Glucose (UA) Urine Ketones Urine Blood Urine Nitrate Urine Bilirubin Urine Urobilinogen Ur Leukocyte Esterase Blood Type Rho(D) Type Antibody Screen 02/05/20 02/05/20 02/05/20 05:48 05:48 07:19 WBC 8.5 Corrected WBC RBC 3.65 L Hgb 11.1 L Hct 35.0 L MCV 95.9 H MCH 30.4 MCHC 31.7 RDW 13.8 Plt Count 241 MPV 11.3 H Gran % Neut % (Auto) 43.9 Lymph % (Auto) 47.2 Gregory % (Auto) 6.5 Eos % (Auto) 1.3 Baso % (Auto) 0.6 Neut # (Auto) 3.75 Lymph # (Auto) 4.0 Gregory # (Auto) 0.6 Eos # (Auto) 0.1 Baso # (Auto) 0.1 Absolute Gran (auto) Nucleated RBC % (auto) 0 Total Counted Atypical Lymphs % Segmented Neutrophils Abs Segm Neuts (Man) Absolute Lymphocytes Lymphocytes (Manual) Monocytes (Manual) Absolute Monocytes Nucleated RBCs # 0.0 Platelet Estimate PT 11.50 INR 0.82 Sodium 138 Potassium 4.5 Chloride 103 Carbon Dioxide 26 Anion Gap 13.5 BUN 25 H Creatinine 0.9 Glucose 94 Calculated Osmolality 283 L Lactate Calcium 8.6 Phosphorus 3.6 Magnesium 2.1 Total Bilirubin 0.7 AST 26 ALT 13 Alkaline Phosphatase 97 Total Protein 5.9 L Albumin 3.8 Globulin 2.1 Lipase TSH Urine Color Urine Appearance Urine pH Ur Specific [place] Urine Protein Urine Glucose (UA) Urine Ketones Urine Blood Urine Nitrate Urine Bilirubin Urine Urobilinogen Ur Leukocyte Esterase Blood Type Rho(D) Type Antibody Screen 02/05/20 02/05/20 02/05/20 12:20 18:10 23:52 WBC Corrected WBC RBC Hgb 11.3 L 11.0 L 11.9 Hct 36.4 L 35.1 L 37.8 L MCV MCH MCHC RDW Plt Count MPV Gran % Neut % (Auto) Lymph % (Auto) Gregory % (Auto) Eos % (Auto) Baso % (Auto) Neut # (Auto) Lymph # (Auto) Gregory # (Auto) Eos # (Auto) Baso # (Auto) Absolute Gran (auto) Nucleated RBC % (auto) Total Counted Atypical Lymphs % Segmented Neutrophils Abs Segm Neuts (Man) Absolute Lymphocytes Lymphocytes (Manual) Monocytes (Manual) Absolute Monocytes Nucleated RBCs # Platelet Estimate PT INR Sodium Potassium Chloride Carbon Dioxide Anion Gap BUN Creatinine Glucose Calculated Osmolality Lactate Calcium Phosphorus Magnesium Total Bilirubin AST ALT Alkaline Phosphatase Total Protein Albumin Globulin Lipase TSH Urine Color Urine Appearance Urine pH Ur Specific [place] Urine Protein Urine Glucose (UA) Urine Ketones Urine Blood Urine Nitrate Urine Bilirubin Urine Urobilinogen Ur Leukocyte Esterase Blood Type Rho(D) Type Antibody Screen 02/06/20 02/06/20 02/06/20 06:00 06:00 06:00 WBC 8.8 Corrected WBC RBC 4.13 Hgb 12.5 Hct 39.2 L MCV 94.9 H MCH 30.3 MCHC 31.9 RDW 13.8 Plt Count 276 MPV 11.9 H Gran % Neut % (Auto) 51.8 Lymph % (Auto) 40.5 Gregory % (Auto) 5.7 Eos % (Auto) 0.7 Baso % (Auto) 0.8 Neut # (Auto) 4.54 Lymph # (Auto) 3.5 Gregory # (Auto) 0.5 Eos # (Auto) 0.1 Baso # (Auto) 0.1 Absolute Gran (auto) Nucleated RBC % (auto) 0 Total Counted Atypical Lymphs % Segmented Neutrophils Abs Segm Neuts (Man) Absolute Lymphocytes Lymphocytes (Manual) Monocytes (Manual) Absolute Monocytes Nucleated RBCs # 0.0 Platelet Estimate PT 13.20 INR 0.97 Sodium 138 Potassium 4.0 Chloride 105 Carbon Dioxide 22 Anion Gap 15.0 BUN 18 Creatinine 1.0 Glucose 106 Calculated Osmolality 283 L Lactate Calcium 8.9 Phosphorus 4.5 Magnesium 3.1 H Total Bilirubin 0.8 AST 21 ALT 17 Alkaline Phosphatase 108 Total Protein 7.6 Albumin 4.1 Globulin 3.5 Lipase TSH Urine Color Urine Appearance Urine pH Ur Specific [place] Urine Protein Urine Glucose (UA) Urine Ketones Urine Blood Urine Nitrate Urine Bilirubin Urine Urobilinogen Ur Leukocyte Esterase Blood Type Rho(D) Type Antibody Screen Cardiac Studies: No Data to Display
[2020-02-06] MEDS: sodium chloride 0.9% 1,000 ML 30 ML IV (10:43)
--- NOTE | 2020-02-06 13:11 | PM.OP ---
Operative Report Date of procedure: February 06, 2020 Pre-op Diagnosis: gi bleed Post-op Diagnosis: Severe diverticulosis Procedure Done: Flexible sigmoidoscopy Pathology: none sent Surgeon: Agusto Garza Anesthesia: MAC Complications: Colonic perforation Condition: critical Disposition: ICU Procedure: The patient was taken to GI lab and placed under MAC. An EGD was performed which is normal. Please refer to the other note. Digital rectal exam was normal. A colonoscope was introduced and advanced to the sigmoid colon where there was severe diverticulosis noted. As I attempted to advance the colonoscope, the nursing staff noted that his abdomen was significantly distended. Examination of the sigmoid colon did not reveal any evidence of bleeding or obvious perforation. The colonoscope was withdrawn suggesting that the pneumoperitoneum was likely secondary to a perforated diverticulum. The patient subsequently became hypotensive with systolic pressure in the 60s and therefore patient was rushed to the operating room. Under ultrasound guidance I placed a Verres needle resulting in complete release of pneumoperitoneum. With release of pneumoperitoneum, patient's blood pressure improved and the systolic was in the 140s and his oxygen sat was up to 100% on 3 L. The patient denied significant abdominal pain. The patient was subsequently woken up, was following commands and was transferred to the ICU for observation and IV antibiotics
--- NOTE | 2020-02-06 13:21 | PC.NURSE ---
1215-During colonoscopy, Kell Hogue lpn noticed that the pts abd was really hard and distended, and it was not that way previously. After we had all confirmed that it was indeed getting harder and more distended, procedure was aborted. Dr Garza gave verbal order to get x-ray of abd, and I called radiology and ordered it stat. but before that could happen, the pts BP had dropped and pt was not waking, anesthesia said to bag the pt and get to OR. I bagged pt on the way to OR 2, where we were met with a team of OR staff. Dr Garza did a needle decompression of the pts abd, and pts vital signs began to return to normal. Pt was beginning to arouse, and an ICU bed was obtained. Dr Garza removed needle from pts abd, and a band-aid was applied. Report was called to TOYIN Dawkins in ICU, and pt was transported to ICU 2 at 1251.
--- NOTE | 2020-02-06 13:31 | PC.NURSE ---
Patient transfer to ICU after procedure today. Dr. Garza to notify patient's of condition and trans to the unit.
[2020-02-06] MEDS: piperacillin-tazobactam 3.375 GM in sodium chloride 0.9% (plus) 50 ML IV (13:47)
[2020-02-06] MEDS: metroNIDAZOLE IV 500 MG/100 ML PREMIX 100 MG IV ×2 (13:47→21:07)
[2020-02-06] MEDS: morphine 4 mg/mL SDV 1 mL 2 MG IVP ×2 (14:49→16:08)
--- NOTE | 2020-02-06 15:25 | PM.PN ---
Subjective Subjective: Interval history: Patient went for a colonoscopy this morning because of ongoing hematochezia. Severe diverticulosis was noted. Procedure was complicated by perforation, therefore colonoscopy could not be completed. During the procedure patient was noted to be hypotensive with systolic blood pressure in the 60s and was taken OR emergently for pneumoperitoneum. Surgical decompression was performed via a Verres needle resulting in complete release of pneumoperitoneum after which patient was brought to the ICU in stable condition. He has been started on empiric cipro and flagyl, currently NPO. His 02 saturation is now at 97% on RA. 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
[2020-02-06] MEDS: ciprofloxacin 400 MG/200 ML PREMIX 200 MG IV (15:46)
[2020-02-06] MEDS: pregabalin 75 mg Capsule PO ×2 (15:53→21:07)
[2020-02-06] MEDS: midodrine 5 mg TABLET PO ×2 (15:53→21:07)
--- NOTE | 2020-02-06 16:13 | PC.NURSE ---
called and updated on patient condition, per pt request. Plans to come during visiting hours today.
[2020-02-06 16:20] LABS: Alanine Aminotransferase 18 U/L (0-41); Albumin Level 4.2 g/dL (3.5-5.2); Alkaline Phosphatase 108 IU/L (40-130); Aspartate Amino Transferase 29 U/L (0-40); Blood Urea Nitrogen 24 mg/dL (8-23); Calcium 8.6 mg/dL (8.5-10.5); Carbon Dioxide 20 mmol/L (22-29); Chloride 105 mmol/L (98-107); Glucose 107 mg/dL (65-115); Osmolality Calculated 285 mOsm/kg (285-295); Sodium 139 mmol/L (136-145); Total Bilirubin 0.9 mg/dL (0.15-1.2); Total Protein 7.2 g/dL (6.6-8.7)
[2020-02-06 17:13] LABS: Basophils # 0.1 10^3/uL (0.0-0.1); Basophils % 0.3 %; Eosinophils % 0.1 %; Hematocrit 39.1 % (42.0-52.0); Hemoglobin 12.1 g/dL (11.7-16.6); Lymphocytes # 2.5 10^3/uL (0.8-4.8); Lymphocytes % 15.1 %; Mean Corpuscular HGB Conc 30.9 g/dL (30.0-36.0); Mean Corpuscular Hemoglobin 30.3 pg (28.0-34.0); Mean Corpuscular Volume 97.8 fL (80-94); Mean Platelet Volume 11.7 fL (7.4-10.4); Monocytes # 0.9 10^3/uL (0.2-0.9); Monocytes % 5.5 %; Neutrophils # 13.11 10^3/uL (1.8-7.7); Neutrophils % 78.7 %; Nucleated Red Blood Cells % 0 %; Platelet Count 294 10^3/cmm (130-400); Red Cell Distribution Width 13.7 % (12.1-15.1); White Blood Count 16.7 10^3/uL (4.0-10.0)
[2020-02-06] MEDS: dextrose 5%-sod chloride 0.45% 1,000 ML 75 ML IV (17:45)
[2020-02-06] MEDS: pantoprazole 40 mg SDV IVP (17:45)
--- NOTE | 2020-02-06 19:52 | PC.NURSE ---
BLADDER SCANNED, 70ML IN BLADDER. NO INTERVENTION AT THIS TIME. IF PT CANNOT URINATE BLADDER SCAN, IF MORE THAN 300 INSERT CATHETER.
[2020-02-07] VITALS (115 sets, daily range): BP systolic 106–147; BP diastolic 59–91; PULSE 65–93; RESP 14–25; TEMP 36.4–37.2; O2SAT 83–97
[2020-02-07 00:51] LABS: Anion Gap 18.5 (5-19); Potassium 4.5 mmol/L (3.5-5.1)
[2020-02-07] MEDS: ciprofloxacin 400 MG/200 ML PREMIX 200 MG IV ×2 (02:03→15:24)
[2020-02-07] MEDS: dextrose 5%-sod chloride 0.45% 1,000 ML 75 ML IV ×2 (06:08→17:45)
[2020-02-07] MEDS: metroNIDAZOLE IV 500 MG/100 ML PREMIX 100 MG IV ×3 (06:08→21:07)
--- NOTE | 2020-02-07 06:32 | PC.NURSE ---
SHIFT SUMMARY PT HAS BEEN ALERT AND ORIENTATED. PT HAS NOT REQUIRED PAIN MEDS THUS FAR IN SHIFT. PT HAS HAD 200 OUTPUT, DR ALONSO AWARE. PT ABD HAS BEEN SOFT. PT HAS BEEN NPO EXCEPT FOR MEDS. NO OTHER EVENTS THIS SHIFT. PT HAS BEEN AFEBRILE.
[2020-02-07 06:52] LABS: Basophils % 0.3 %; Eosinophils % 0.2 %; Hematocrit 32.6 % (42.0-52.0); Hemoglobin 10.2 g/dL (11.7-16.6); Lymphocytes # 2.8 10^3/uL (0.8-4.8); Lymphocytes % 23.7 %; Mean Corpuscular HGB Conc 31.3 g/dL (30.0-36.0); Mean Corpuscular Hemoglobin 30.4 pg (28.0-34.0); Mean Platelet Volume 12.4 fL (7.4-10.4); Monocytes # 0.8 10^3/uL (0.2-0.9); Neutrophils # 8.16 10^3/uL (1.8-7.7); Neutrophils % 68.4 %; Nucleated Red Blood Cells % 0 %; Platelet Count 248 10^3/cmm (130-400); Red Blood Count 3.36 10^6/uL (4.1-5.3); Red Cell Distribution Width 13.9 % (12.1-15.1); White Blood Count 11.9 10^3/uL (4.0-10.0)
--- NOTE | 2020-02-07 06:52 | XRR_ITS ---
PROCEDURE INFORMATION: Exam: XR Abdomen, 2 Views Exam date and time: 02/07/2020 6:55 AM Age: 74 years old Clinical indication: Abdominal pain; Localized; Right lower quadrant (rlq); Prior surgery; Surgery date: 6+ months; Surgery type: Hernia; Patient HX: Colonic perforation; C/O R lower abd pain TECHNIQUE: Imaging protocol: XR of the abdomen. Views: 2 Views. COMPARISON: CT Abdomen/Pelvis [facility] [id number] 03/16/2017 9:11 AM FINDINGS: Gastrointestinal tract: Bowel gas pattern is nonspecific. Distal rectal gas. Scattered loops of air filled small bowel none of which are dilated. Air-filled large bowel diffusely. Intraperitoneal space: Free air in the subdiaphragmatic region most conspicuous on the left and in the midline. Bones/joints: No acute process within the osseous structures of the spine or pelvis. Soft tissues: No appreciable calcifications XR/XR abdomen min 2V [id number] IMPRESSION: Free air in the subdiaphragmatic region suspected most conspicuous on the left and in the midline. no prior studies are available.
[2020-02-07 07:15] LABS: Alanine Aminotransferase 14 U/L (0-41); Albumin Level 3.7 g/dL (3.5-5.2); Alkaline Phosphatase 92 IU/L (40-130); Anion Gap 13.8 (5-19); Aspartate Amino Transferase 21 U/L (0-40); Blood Urea Nitrogen 25 mg/dL (8-23); Calcium 7.9 mg/dL (8.5-10.5); Carbon Dioxide 22 mmol/L (22-29); Chloride 105 mmol/L (98-107); Globulin 2.5 g/dL (1.3-4.6); Glucose 214 mg/dL (65-115); Magnesium 2.1 mg/dL (1.7-2.3); Osmolality Calculated 287 mOsm/kg (285-295); Potassium 3.8 mmol/L (3.5-5.1); Sodium 137 mmol/L (136-145); Total Protein 6.2 g/dL (6.6-8.7)
--- NOTE | 2020-02-07 08:27 | PC.NURSE ---
up to chair at bedside. rain. jasmeet. states in past he has passed out. thinks during chemo. therapy.
--- NOTE | 2020-02-07 08:55 | PM.PN ---
Subjective Subjective: Interval history: Patient has been doing well denies any pain, states that his abdominal pain completely resolved today after passing flatus. No nausea or vomiting. Has been afebrile and hemodynamically stable overnight. Vitals/I&O/Wt Last Vital Signs Temp 98.5 F 02/07/20 06:32 Pulse 72 02/07/20 04:35 Resp 17 02/07/20 04:35 BP 131/79 02/07/20 04:30 Pulse Ox 95 02/07/20 04:35 02/06/20 02/07/20 02/07/20 22:59 06:59 14:59 Intake Total 970 / 1998.75 1028.75 / 1998.75 Output Total 100 / 200 100 / 200 Balance 870 / 1798.75 928.75 / 1798.75 Physical Exam Narrative: EXAM NARRATIVE: Abdomen: Soft, nondistended, nontender Data : 02/07/20 05:50 02/07/20 05:50 A&P Assessment and plan (1) Pneumoperitoneum: 74-year-old gentleman status post aborted colonoscopy developed pneumoperitoneum. Patient has been hemodynamically stable overnight, afebrile, no evidence of peritonitis. WBC down to 11.9 Start clear liquid diet Continue IV antibiotics If patient is stable during the day, should be able to transfer to the floor. 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
[2020-02-07] MEDS: finasteride 5 mg Tablet PO (09:09)
[2020-02-07] MEDS: midodrine 5 mg TABLET PO ×3 (09:10→21:07)
[2020-02-07] MEDS: pregabalin 75 mg Capsule PO ×3 (09:10→21:07)
[2020-02-07] MEDS: pantoprazole 40 mg SDV IVP ×2 (09:10→17:32)
--- NOTE | 2020-02-07 10:39 | ANE.PACU2 ---
Inpatient post-anesthesia follow up: Airway intact: Yes Vital signs: Temperature 98.5 F Pulse Rate [Left R adial] 91 Pulse Rate 70 Respiratory Rate 25 Blood Pressure [Le ft Arm] 115/78 Blood Pressure 112/69 Pulse Oximetry 94 Oxygen Delivery Me thod [ Nasal Cannula Current Rate & Del gerald] Oxygen Delivery Me thod Nasal Cannula Oxygen Flow Rate [ Current Rate 4 & Delivery] Oxygen Flow Rate 4 Fraction of Inspir ed Oxygen Hydration adequate: Yes Nausea and vomiting: No Pain level: Pain over R ribs Mental status: Baseline Additional Comments: patient doing very well, passing gas, eating jello
--- NOTE | 2020-02-07 16:16 | PC.NURSE ---
transferred to 2 [facility] per w/c. with belongings
--- NOTE | 2020-02-07 16:26 | PM.PN ---
Subjective Subjective: Interval history: Patient was seen earlier this morning while in the ICU at around 10 AM. He is doing well today. He is able to pass flatus. White blood cell count has trended down from 16-11.9. Hemoglobin remains fairly stable at 10.2. No further hematochezia. He relates the pain is improved after passing flatus. Medications: Reviewed: Yes Vitals/I&O/Wt Last Vital Signs Temp 99 F 02/07/20 15:19 Pulse 65 02/07/20 13:00 Resp 18 02/07/20 13:00 BP 122/77 02/07/20 14:00 Pulse Ox 93 02/07/20 13:00 02/07/20 02/07/20 02/07/20 06:59 14:59 22:59 Intake Total 1228.75 / 2198.75 1068 / 1068 Output Total 100 / 200 Balance 1128.75 / 1998.75 1068 / 1068 Physical Exam Narrative: EXAM NARRATIVE: GEN: Awake, alert and oriented, no acute distress CVS: S1S2 N RS: CTA B/L Abd: Soft, nt/nd , bs+ ADVANCED MANAGER: no focal neuro deficits Data : 02/07/20 05:50 02/07/20 05:50 A&P Assessment and plan (1) Lower GI bleed: Patient underwent EGD and colonoscopy yesterday due to ongoing hematochezia,, latter procedure was complicated by pneumoperitoneum likely from a perforated diverticula followed by emergent decompression performed in the OR. Patient stabilized hemodynamically thereafter Continues to remain stable. Passing flatus. Started on clear diet today can see how he tolerates it. Back pain is much improved today. Status: Acute (2) Melena: Now resolved. Status: Acute (3) Multiple myeloma: Status: Acute (4) Syncope: Status: Acute (5) Pneumoperitoneum: As above s/p decompression on empiric cipro and flagyl currently, started on clear liquids today. serial abdominal exams Status: Acute Attestations Medical Necessity Statement*: Improving today. No further hematochezia. Pneumoperitoneum still seen on x-rays, however patient is now able to pass flatus, appears to be improving. White blood cell count trending down reassuringly. 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
--- NOTE | 2020-02-07 16:30 | XRR_ITS ---
PROCEDURE INFORMATION: Exam: XR Right Ribs Exam date and time: 02/07/2020 5:13 PM Age: 74 years old Clinical indication: Injury or trauma; Fall; Follow-up exam; Additional info: Evalute for fracture TECHNIQUE: Imaging protocol: XR Right ribs. Views: 2 views. COMPARISON: CR Chest 1 [place] [id number] 08/15/2018 3:58 PM, abdomen x-ray 02/07/2020 FINDINGS: Bones/joints: Probable acute posterior right 10th rib fracture, new since 08/15/2018. Multiple old healed right lateral rib fractures. Upper abdomen: Pneumoperitoneum. Soft tissues: Normal. XR/XR ribs RT 2V* [id number] IMPRESSION: 1. Probable acute posterior right 10th rib fracture. 2. Pneumoperitoneum, as discussed on the prior abdomen x-ray report.
[2020-02-07] MEDS: lidocaine 5% Patch 1 PATCH TOPICAL (21:07)
[2020-02-08] VITALS: BP 112/70; PULSE 64; RESP 20; TEMP 36.4; O2SAT 93
[2020-02-08] MEDS: ciprofloxacin 400 MG/200 ML PREMIX 200 MG IV ×2 (03:01→14:11)
[2020-02-08 04:00] VITALS: BP 131/77; PULSE 63; RESP 18; TEMP 36.3; O2SAT 93
[2020-02-08 05:46] LABS: Basophils % 0.5 %; Eosinophils # 0.1 10^3/uL (0.0-0.8); Eosinophils % 1.4 %; Hematocrit 32.4 % (42.0-52.0); Hemoglobin 10.3 g/dL (11.7-16.6); Lymphocytes # 2.1 10^3/uL (0.8-4.8); Lymphocytes % 24.9 %; Mean Corpuscular HGB Conc 31.8 g/dL (30.0-36.0); Mean Corpuscular Hemoglobin 30.2 pg (28.0-34.0); Mean Platelet Volume 12.5 fL (7.4-10.4); Monocytes # 0.6 10^3/uL (0.2-0.9); Monocytes % 7.5 %; Neutrophils # 5.44 10^3/uL (1.8-7.7); Neutrophils % 65.3 %; Nucleated Red Blood Cells % 0 %; Platelet Count 239 10^3/cmm (130-400); Red Blood Count 3.41 10^6/uL (4.1-5.3); Red Cell Distribution Width 13.8 % (12.1-15.1); White Blood Count 8.3 10^3/uL (4.0-10.0)
[2020-02-08] MEDS: metroNIDAZOLE IV 500 MG/100 ML PREMIX 100 MG IV (06:01)
[2020-02-08 06:32] LABS: Alanine Aminotransferase 13 U/L (0-41); Albumin Level 3.5 g/dL (3.5-5.2); Alkaline Phosphatase 92 IU/L (40-130); Anion Gap 12.7 (5-19); Aspartate Amino Transferase 17 U/L (0-40); Blood Urea Nitrogen 15 mg/dL (8-23); Calcium 8.3 mg/dL (8.5-10.5); Carbon Dioxide 24 mmol/L (22-29); Chloride 105 mmol/L (98-107); Glucose 108 mg/dL (65-115); Osmolality Calculated 283 mOsm/kg (285-295); Potassium 3.7 mmol/L (3.5-5.1); Sodium 138 mmol/L (136-145); Total Bilirubin 0.8 mg/dL (0.15-1.2); Total Protein 6.5 g/dL (6.6-8.7)
[2020-02-08 08:00] VITALS: BP 149/87; PULSE 70; RESP 20; TEMP 36.4; O2SAT 95
[2020-02-08] MEDS: midodrine 5 mg TABLET PO (08:01)
[2020-02-08] MEDS: finasteride 5 mg Tablet PO (08:01)
[2020-02-08] MEDS: lidocaine 5% Patch 1 PATCH TOPICAL (08:02)
[2020-02-08] MEDS: pregabalin 75 mg Capsule PO ×2 (08:02→14:07)
[2020-02-08] MEDS: pantoprazole 40 mg SDV IVP (08:02)
[2020-02-08 12:00] VITALS: BP 163/79; PULSE 85; RESP 20; TEMP 36.4; O2SAT 96
--- NOTE | 2020-02-08 13:13 | P.PN_ITS ---
Subjective Subjective: Interval history: Denies any abdominal pain, had 2 nonbloody bowel movements today. Tolerating diet. Vitals/I&O/Wt Last Vital Signs Temp 97.6 F 02/08/20 12:00 Pulse 85 02/08/20 12:00 Resp 20 H 02/08/20 12:00 BP 163/79 02/08/20 12:00 Pulse Ox 96 02/08/20 12:00 02/07/20 02/08/20 02/08/20 22:59 06:59 14:59 Intake Total 1391.25 / 2559.25 100 / 2559.25 750 / 750 Output Total 325 / 1170 845 / 1170 125 / 125 Balance 1066.25 / 1389.25 -745 / 1389.25 625 / 625 Physical Exam Narrative: EXAM NARRATIVE: Abdomen: Soft, nondistended, nontender Data : 02/08/20 04:39 02/08/20 04:39 A&P Assessment and plan (1) Pneumoperitoneum: Pneumoperitoneum status post perforated duodenal diverticulum managed conservatively with bowel rest and IV antibiotics DC home today on oral Cipro and Flagyl GI bleed: Resolved Follow-up 2 weeks Status: Acute Attestations Medical Necessity Statement*: GI bleed going home today Coding Level of Care Code 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
[2020-02-08] MEDS: sodium chloride 0.9% 1,000 ML 75 ML IV (14:12)
[2020-02-08] MEDS: metroNIDAZOLE 500 MG Tablet PO (15:03)
[2020-02-08 16:00] VITALS: BP 128/67; PULSE 77; RESP 20; TEMP 36.3; O2SAT 98
--- NOTE | 2020-02-08 16:10 | PM.DCS ---
Discharge Providers Date of Admission: 02/06/20 13:10 Date of Discharge: February 08, 2020 Attending Provider at Admission: Hamzah Larios MD Attending Provider at Discharge: Karol Alvarado MD Primary Care Provider: Sumit Louie DO Diagnoses at Discharge Discharge Diagnosis (1) Pneumoperitoneum: Status: Acute Reason for Visit Reason for Visit: blood in stool Hospital Course Discharge Summary: Thanh Starks is a 74 year old male with a past medical history of multiple myeloma, BPH, syncope on midodrine, history of femur fracture, who had a colonoscopy 10 years ago, benign polyps removed, no history of upper GI bleed, not on blood thinners, takes a baby aspirin, denies NSAID use, who comes to the emergency room due to complaints of bloody stool. His hemoglobin remained stable however due to ongoing hematochezia and melena he underwent upper and lower GI endoscopies. Upper GI endoscopy did not reveal any gross abnormalities within the stomach or the duodenum. While attempting to undergo colonoscopy, patient was noted to have pneumoperitoneum. Likely a result of perforated diverticula. He was taken to the OR emergently and had surgical decompression with placement of the Veress needle. Following the procdure he has stabilized hemodynamically and was monitored in the ICU for 1 night and managed conservatively. He is currently doing well. Diet was resumed, slowly progressed with clears, today the diet has been progressed and he is tolerating this well. Pain is currently well controlled. Patient has had no further episodes of hematochezia. He is passing flatus. White blood cell count has trended down from 16-->8. He is being discharged on p.o. Cipro and Flagyl over the next week and recommended to follow-up with Dr. Garza in the next 7 to 10 days. He is alerted to come back to the ER should his abdominal pain get worse or if he develops signs of constipation, fever. Physical Exam Narrative: EXAM NARRATIVE: GEN: Awake, alert and oriented, no acute distress CVS: S1S2 N RS: CTA B/L Abd: Soft, nt/nd , bs+ MICROSTRATEGY ARCHITECT: no focal neuro deficits Discharge Data Data Completed and Pending: Completed Studies During Hospitalization Category Date Time Status XR abdomen min 2V [id number] Routine Exams 02/07/20 06:52 Completed XR ribs RT 2V* 71 100 Routine Exams 02/07/20 16:30 Completed Labs from last 24 hours 02/08/20 02/08/20 04:39 04:39 WBC 8.3 RBC 3.41 L Hgb 10.3 L Hct 32.4 L MCV 95.0 H MCH 30.2 MCHC 31.8 RDW 13.8 Plt Count 239 MPV 12.5 H Neut % (Auto) 65.3 Lymph % (Auto) 24.9 [place] % (Auto) 7.5 Eos % (Auto) 1.4 Baso % (Auto) 0.5 Neut # (Auto) 5.44 Lymph # (Auto) 2.1 [place] # (Auto) 0.6 Eos # (Auto) 0.1 Baso # (Auto) 0.0 Nucleated RBC % (a uto) 0 Nucleated RBCs # 0.0 Sodium 138 Potassium 3.7 Chloride 105 Carbon Dioxide 24 Anion Gap 12.7 BUN 15 Creatinine 0.9 Glucose 108 Calculated Osmolal ity 283 L Calcium 8.3 L Total Bilirubin 0.8 AST 17 ALT 13 Alkaline Phosphata se 92 Total Protein 6.5 L Albumin 3.5 Globulin 3.0 Vitals: Last Vital Signs Temp 97.6 F 02/08/20 12:00 Pulse 85 02/08/20 12:00 Resp 20 H 02/08/20 12:00 BP 163/79 02/08/20 12:00 Pulse Ox 96 02/08/20 12:00 Discharge Plan Discharge Patient Disposition: Home, Self-Care Condition: Stable Prescriptions: New lidocaine [Lidoderm] 5 % Adhesive Patch,Medicated 1 patch topical O12O12 14 Days Qty: 14 RF: 0 ciprofloxacin HCl 500 mg Tablet 500 mg PO BID 7 Days Qty: 14 RF: 0 metronidazole 500 mg Tablet 500 mg PO TID 7 Days Qty: 21 RF: 0 pantoprazole [Protonix] 40 mg tablet,delayed release (DR/EC) 40 mg PO DAILY Qty: 14 RF: 0 Continued pregabalin [Lyrica] 75 mg capsule 75 mg PO TID RF: 0 midodrine 5 mg tablet 5 mg PO TID RF: 0 Complete Multivitamin Tablet 1 tab PO DAILY RF: 0 potassium chloride 10 mEq tablet extended release See Rx Instructions .ROUTE .COMPLEX RF: 0 meclizine 25 mg tablet 25 mg PO TID PRN (Reason: Dizziness) RF: 0 Tylenol Extra Strength 500 mg Tablet 1,000 mg PO PRN RF: 0 Benadryl 25 mg Capsule 25 mg PO BEDTIME PRN (Reason: Sleep) RF: 0 Colace 100 mg Capsule 100 mg PO PRN RF: 0 magnesium oxide 400 mg magnesium Tablet 400 mg PO BEDTIME RF: 0 finasteride 5 mg tablet 5 mg PO DAILY RF: 0 Held aspirin [Adult Low Dose Aspirin] 81 mg tablet,delayed release (DR/EC) 81 mg PO DAILY RF: 0 Hold Instructions: Resume on 02/11/20. Discontinued dexamethasone 4 mg Tablet See Rx Instructions .ROUTE .COMPLEX RF: 0 Imodium A-D 1 - 2 tab PO PRN RF: 0 Discharge Orders: Discharge Order (Routine); Ordered 02/08/20 Ordered By: Karol Alvarado Other Ambulatory Orders: Hemoglobin and Hematocrit (Routine) Timeframe: 3 Days Location: Determined by Patient Ordered By: Karol Alvarado Referrals: Agusto Garza MD [Physician] - 2 weeks Sumit Louie DO [Primary Care Provider] - 4-7 days (post discharge follow up. 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
[2020-02-08 19:16] VITALS: BP 128/67; PULSE 77; RESP 20; TEMP 36.3; O2SAT 98
== END 2020-02-08 16:30 | disposition home or self-care (01) | DRG 378 ==
LOC: ER 18:01 → ICU 02-05 02:38 → MEDSURG 02-05 02:38 → ICU 02-06 13:06 → MEDSURG 02-07 16:14
PROVIDERS: Emergency Medicine; Surgery; Admitting Provider Family Medicine; PCP Emergency Medicine Emergency Medical Services; Visit Provider Student in an Organized Health Care Education/Training Program
PROC: 0DJ08ZZ Inspection of Upper Intestinal Tract, Via Natural or Artificial Opening Endoscopic (ICD-10-PCS; CPT 43235; principal; 2020-02-06 10:55)
PROC: 0DJD8ZZ Inspection of Lower Intestinal Tract, Via Natural or Artificial Opening Endoscopic (ICD-10-PCS; CPT 45378; 2020-02-06 10:55)
PROC: 0W9G3ZZ Drainage of Peritoneal Cavity, Percutaneous Approach (ICD-10-PCS; principal; 2020-02-06 12:15)
DX: K57.31 Diverticulosis of large intestine without perforation or abscess with bleeding (principal); K91.71 Accidental puncture and laceration of a digestive system organ or structure during a digestive system procedure; K92.1 Melena; N40.0 Benign prostatic hyperplasia without lower urinary tract symptoms; Z85.79 Personal history of other malignant neoplasms of lymphoid, hematopoietic and related tissues; Z86.010 Personal history of colon polyps; I95.9 Hypotension, unspecified; Z79.82 Long term (current) use of aspirin; Y69 Unspecified misadventure during surgical and medical care; Y81.0 Diagnostic and monitoring general- and plastic-surgery devices associated with adverse incidents
CPT/HCPCS: 12345; 36415; 43235; 45330; 51798; 71100; 74019; 80053; 81003; 83605; 83690; 83735; 84100; 84443; 85007; 85014; 85018; 85025; 85610; 86850; 86900; 96375; 99284; C9113; G0378; J0744; J2250; J2270; J2543; J2704; J7030; J7040; J7799; S0030

== ENCOUNTER → 2020-02-12 12:27 | Outpatient (BNVA) | payer OTHER, SELFPAY | PROVIDERS: PCP Emergency Medicine Emergency Medical Services; Visit Provider Emergency Medicine Emergency Medical Services | DX: K92.2 Gastrointestinal hemorrhage, unspecified (principal); K66.8 Other specified disorders of peritoneum | CPT/HCPCS: 83036; 85014 ==

== ENCOUNTER → 2020-04-28 10:00 | Outpatient (BNVA) | payer OTHER, SELFPAY | PROVIDERS: PCP Emergency Medicine Emergency Medical Services; Visit Provider Urology | DX: R31.0 Gross hematuria (principal) | CPT/HCPCS: 88112 ==

== ENCOUNTER 2020-05-27 12:44 | Outpatient (CLI) | payer OTHER, SELFPAY ==
--- NOTE | 2020-05-27 12:45 | XR_ITS ---
WS: [id number] XR KUB [id number] REASON FOR EXAM: GROSS HEMATURIA FINDINGS: There is mild to moderate gaseous distention of the stomach and several small bowel loops. The colon is decompressed. No free air. No urinary tract calculus is identified. Bilateral hips nailings and moderate degenerative spondylosis in the lower lumbar spine. XR/XR KUB [id number] IMPRESSION: Minimally abnormal bowel gas pattern. Nonspecific. No urinary tract calculi identified.
== END 2020-05-27 12:45 | disposition home or self-care (01) ==
PROVIDERS: PCP Emergency Medicine Emergency Medical Services; Visit Provider Urology
DX: R31.0 Gross hematuria (principal)
CPT/HCPCS: 74018; 81003

== ENCOUNTER → 2021-05-27 09:10 | Outpatient (BNVA) | payer SELFPAY | PROVIDERS: PCP Emergency Medicine Emergency Medical Services; Visit Provider Urology | DX: N40.0 Benign prostatic hyperplasia without lower urinary tract symptoms (principal); R31.0 Gross hematuria | CPT/HCPCS: 81003 ==

== ENCOUNTER 2021-12-27 15:27 | Outpatient (CLI) | payer OTHER, SELFPAY ==
--- NOTE | 2021-12-27 16:09 | USCV_ITS ---
Thanh Starks Age: 76 Gender: M : 1945 Exam Date: 12/27/2021 16:17 Ordering Phys: Sumit Louie DO Technologist: Andres John [place] [facility] [place]: murmurs BP: 122 / 65 HR: 61 Rhythm: Sinus Technical Quality: Very technically difficult study MEASUREMENTS (Male / Female) Normal Values 2D ECHO LV Diastolic Diameter PLAX 3.3 cm 4.2 - 5.9 / 3.9 - 5.3 cm LV Systolic Diameter PLAX 2.0 cm IVS Diastolic Thickness 1.3 cm 0.6 - 1.0 / 0.6 - 0.9 cm IVS Systolic Thickness 1.3 cm LVPW Diastolic Thickness 0.9 cm 0.6 - 1.0 / 0.6 - 0.9 cm LVPW Systolic Thickness 0.6 cm LVOT Diameter 2.0 cm LV Ejection Fraction 2D Teich 69.6 % LV Ejection Fraction MOD 2C 59.1 % LV Ejection Fraction 2C AL 57.4 % LA Diameter 3.6 cm LA Width 3.1 cm LA Height 4.2 cm RA Width 3.0 cm RA Height 4.6 cm M-MODE Aortic Annulus Diameter 3.6 cm LA Ao Ratio MM 1.0 DOPPLER AV Peak Velocity 261.3 cm/s LVOT Peak Velocity 116.0 cm/s AV Area Cont Eq vti 1.7 cm squared AV Area Cont Eq pk 1.4 cm squared MV Peak Velocity 106.0 cm/s MV Area PHT 2.7 cm squared Mitral E to A Ratio 0.6 MV E' Velocity 29.5 cm/s Mitral E to MV E' Ratio 6.5 Mitral E to LV E' Lateral Ratio 6.2 Mitral E to LV E' Septal Ratio 7.0 Right Atrial Pressure 8.0 mmHg RV Acceleration Time 0.2 s RV Ejection Time 0.3 s RV AcT/ET 0.6 FINDINGS Left Ventricle Normal left ventricular size. LV systolic function is normal with EF of 55-60%. No regional wall motion abnormalities. Grade 1 diastolic dysfunction Right Ventricle Grossly normal Right Atrium Grossly normal Left Atrium The left atrium is normal in size. Mitral Valve Grossly normal without significant stenosis or prolapse. There is mild mitral regurgitation. Aortic Valve Aortic valve is not well visualized. Mild aortic stenosis is noted with aortic valve area of 1.67 cm squared and mean gradient across aortic valve of 14.4 mmHg. Tricuspid Valve Grossly normal without significant stenosis or regurgitation. Insufficient TR jet to calculate RVSP. Pulmonic Valve Not visualized Pericardium Normal pericardium without effusion. Aorta Normal ascending aorta dimension. IVC CONCLUSIONS Technically limited quality echocardiogram because of poor ultrasonic windows. LV systolic function is normal with EF 55 to 60%. Grade 1 diastolic dysfunction is seen. Valvular structures are not well seen Mild mitral regurgitation is seen. Mild aortic stenosis is noted with aortic valve area of 1.67 cm squared and mean gradient across aortic valve of 14.4 mmHg. Compared to prior echocardiogram from 2018, patient now is noted to have mild mitral regurgitation and mild aortic stenosis Jose Rodriguez MD (Electronically Signed) Final Date: 06 January 2022 09:49 S
== END 2021-12-27 15:28 | disposition home or self-care (01) ==
LOC: RAD 15:35
PROVIDERS: PCP Emergency Medicine Emergency Medical Services; Visit Provider Emergency Medicine Emergency Medical Services
DX: Z01.89 Encounter for other specified special examinations (principal)
CPT/HCPCS: 93306

== ENCOUNTER 2022-03-07 15:29 | Emergency (ER) | payer OTHER, SELFPAY ==
[2022-03-07 16:11] VITALS: BP 145/77; PULSE 75; RESP 18; TEMP 36.6; O2SAT 98; BMI 32.9
[2022-03-07 16:36] VITALS: BP 145/77; PULSE 75; RESP 18; TEMP 36.6; O2SAT 98
--- NOTE | 2022-03-07 17:30 | W.ED.WOUNDLC ---
HPI - Wound/Laceration General: Chief Complaint: Wound/Laceration Stated Complaint: right arm pain Time Seen by Provider: 03/07/22 17:12 History of Present Illness: 76-year-old male patient comes in for a skin tear to the right forearm. Patient reports incident occurred about 3 days ago. Patient came to the ER due to some persistent bleeding. No bleeding is noted at this time. Patient does take a daily aspirin. Review of Systems General: Reports: 10 or more systems reviewed and unremarkable except in HPI and below Skin/Breast: Reports: new lesions PFSH ED PFSH: Medical History (Updated 03/07/22 @ 17:27 by FRED Grande) Diverticulosis Gastritis History of femur fracture pins placed Multiple myeloma Orthostatic hypertension Peripheral neuropathy Surgical History Status post colonoscopy with polypectomy Family History Mother , AT AGE 82 Cancer PANCREATIC Father , AT AGE 74 Cancer PROSTATE Brother Cancer Colon cancer Grandmother Cancer Social History Alcohol intake: never Adopted: No Caregiver/support person: No Lives independently: No Household members: spouse Marital status: Current occupational status: retired History of recent travel: No Current gender identity: Male Physical Exam Const: COMMON NORMALS: alert Neck/C-Spine: COMMON NORMALS: full ROM Resp: COMMON NORMALS: normal respiratory effort and clear to auscultation bilaterally AUSCULTATION: clear to auscultation bilaterally Cardio: COMMON NORMALS: regular rate RATE: regular rate Extremity: RIGHT UPPER EXTREMITY: Yes lower arm (6 cm skin tear dorsal arm) Right lower arm: Yes inspection, Yes palpation and Yes neurovascular exam Neuro: SENSORIUM/ORIENTATION: Yes alert Skin: TRAUMA: laceration (6 cm flap skin tear) Course Vital Signs: Vital signs: Vital Signs Temperature 98 F 03/07/22 16:36 Pulse Rate 75 03/07/22 16:36 Respiratory Rate 18 03/07/22 16:36 Blood Pressure 145/77 03/07/22 16:36 Pulse Oximetry 98 03/07/22 16:36 Oxygen Delivery Me thod 03/07/22 16:36 MDM - Wound/Laceration Medical Decision Making 76-year-old male patient comes in for evaluation of skin tear to the right lower arm. There is a 6 cm flap skin tear to the right lower arm. No signs of fracture or other injuries noted. Patient's immunizations are up-to-date. Differential diagnosis includes wound infection, laceration, foreign body. No signs of foreign body was noted. No signs of infection at this time. Wound was cleaned with Betadine and a clear site dressing was applied. Reviewed care and instructions with patient and his spouse recommendations for follow-up or return to the ER. Discharge Plan Discharge Patient Disposition: Home Clinical Impression: Avulsion of skin Condition: Stable Prescriptions: No Action pregabalin [Lyrica] 75 mg capsule 75 mg PO TID Complete Multivitamin Tablet 1 tab PO DAILY aspirin [Adult Low Dose Aspirin] 81 mg tablet,delayed release (DR/EC) 81 mg PO DAILY Hold Instructions: Resume on 02/11/20. potassium chloride 10 mEq tablet extended release See Rx Instructions .ROUTE .COMPLEX Rx Instructions: 10 mEq orally IN THE AFTERNOON midodrine 5 mg tablet 5 mg PO ONCE Tylenol Extra Strength 500 mg Tablet 1,000 mg PO PRN Benadryl 25 mg Capsule 25 mg PO BEDTIME PRN (Reason: Sleep) magnesium oxide 400 mg magnesium Tablet 400 mg PO BEDTIME finasteride 5 mg tablet 5 mg PO DAILY Discharge Orders: Discharge ED (Routine); Ordered 03/07/22 Ordered By: Wolfgang Leigh Referrals: Sumit Louie DO [Primary Care Provider] - Discharge Diet: Usual diet Discharge Activity: Increase activity as tolerated Patient Instructions: Skin Tear (ED) Activity Restrictions/Additional Instructions: Keep wound clean and dry. Leave initial dressing on until it comes off on its own. If you have a large amount of fluid collecting under the dressing or he has increased fever and pain follow-up with primary care. Return to ER for new concerns such as fever greater than 100.4, increased swelling to the extremity, or uncontrolled pain. Coding Level of Care Code ED Rn Rehabilitation for [facility]
== END 2022-03-07 17:35 | disposition home or self-care (01) ==
PROVIDERS: Emergency Provider Nurse Practitioner Family; PCP Emergency Medicine Emergency Medical Services
DX: S51.801A Unspecified open wound of right forearm, initial encounter (principal); X58.XXXA Exposure to other specified factors, initial encounter; Z79.82 Long term (current) use of aspirin
CPT/HCPCS: 99282

== ENCOUNTER → 2023-03-15 10:16 | Outpatient (BNVA) | payer OTHER, SELFPAY | PROVIDERS: PCP Emergency Medicine Emergency Medical Services; Visit Provider Podiatrist Foot & Ankle Surgery | DX: I73.9 Peripheral vascular disease, unspecified; L84 Corns and callosities; L60.3 Nail dystrophy; M20.41 Other hammer toe(s) (acquired), right foot; M20.42 Other hammer toe(s) (acquired), left foot | CPT/HCPCS: 11056; 11721; 99204 ==

== ENCOUNTER → 2023-05-09 10:24 | Outpatient (BNVA) | payer OTHER, SELFPAY | PROVIDERS: PCP Emergency Medicine Emergency Medical Services; Visit Provider Dermatology | DX: C44.629 Squamous cell carcinoma of skin of left upper limb, including shoulder (principal); Z85.828 Personal history of other malignant neoplasm of skin; L21.8 Other seborrheic dermatitis; L57.0 Actinic keratosis; L98.8 Other specified disorders of the skin and subcutaneous tissue; L81.4 Other melanin hyperpigmentation | CPT/HCPCS: 17000; 99204 ==

== ENCOUNTER → 2023-06-19 09:57 | Outpatient (BNVA) | payer OTHER, SELFPAY | PROVIDERS: PCP Emergency Medicine Emergency Medical Services; Visit Provider Podiatrist Foot & Ankle Surgery | DX: I73.9 Peripheral vascular disease, unspecified (principal); L84 Corns and callosities; L60.3 Nail dystrophy; M20.41 Other hammer toe(s) (acquired), right foot; M20.42 Other hammer toe(s) (acquired), left foot; C44.629 Squamous cell carcinoma of skin of left upper limb, including shoulder | CPT/HCPCS: 11056; 11721; 12032; 17313 ==

== ENCOUNTER → 2023-07-03 11:45 | Outpatient (BNVA) | payer OTHER, SELFPAY | PROVIDERS: PCP Emergency Medicine Emergency Medical Services; Visit Provider Nurse Practitioner Family | DX: Z48.02 Encounter for removal of sutures (principal) | CPT/HCPCS: 99212 ==

== ENCOUNTER → 2023-10-17 08:48 | Outpatient (BNVA) | payer OTHER, SELFPAY | PROVIDERS: PCP Emergency Medicine Emergency Medical Services; Visit Provider Podiatrist Foot & Ankle Surgery | DX: L60.3 Nail dystrophy (principal); I73.9 Peripheral vascular disease, unspecified; L84 Corns and callosities | CPT/HCPCS: 11056; 11721 ==

== ENCOUNTER → 2024-01-23 08:15 | Outpatient (BNVA) | payer OTHER, SELFPAY | PROVIDERS: PCP Emergency Medicine Emergency Medical Services; Visit Provider Podiatrist Foot & Ankle Surgery | DX: L60.3 Nail dystrophy (principal); I73.9 Peripheral vascular disease, unspecified; L84 Corns and callosities | CPT/HCPCS: 11056; 11721 ==

== ENCOUNTER 2024-02-28 07:00 | Outpatient (CLI) | payer OTHER, SELFPAY | END 2024-02-28 07:01 | disposition home or self-care (01) | LOC: RAD 07:00 | PROVIDERS: PCP Family Medicine; Visit Provider Family Medicine | DX: Z01.89 Encounter for other specified special examinations (principal) | CPT/HCPCS: 93306 ==

== ENCOUNTER 2024-07-18 22:53 | Emergency (ER) | payer OTHER, SELFPAY ==
[2024-07-18 22:55] VITALS: BP 95/62; PULSE 110; RESP 18; TEMP 36.7; O2SAT 88
--- NOTE | 2024-07-18 23:11 | ED_ITS ---
HPI - Nausea/Vomiting/Diarrhea 2 General: Chief complaint: Nausea/Vomiting/Diarrhea Stated complaint: N/V/D Time Seen by Provider: 07/18/24 23:05 History of Present Illness: Patient presents to the ER with nausea vomiting x 2 days with intermittent right lower abdominal pain is sharp stabbing in nature but only last a few seconds when it comes. Patient had this all around [facility] [address] and saw his PCP who told him use Gas-X and went away but then it came back and his family wanted him evaluated today. Patient received 4 mg of morphine and 500 mL of sodium chloride by EMS. Patient had blood glucose of 104. Related Data Home Medications Medication Instructions Recorded Confirmed aspirin 81 mg tablet,delayed 81 mg PO DAILY 11/05/19 01/23/24 release (Adult Low Dose Aspirin) multivitamin,[id number] 1 tab PO DAILY 11/05/19 01/23/24 (Complete Multivitamin tablet) potassium chloride 10 mEq See Rx Instructions .Route .COMPLEX 11/05/19 01/23/24 tablet,extended release pregabalin 75 mg capsule (Lyrica) 75 mg PO TID 11/05/19 01/23/24 acetaminophen 500 mg tablet 1,000 mg PO PRN 02/04/20 01/23/24 (Tylenol Extra Strength) diphenhydramine HCl 25 mg capsule 25 mg PO BEDTIME PRN Sleep 02/04/20 01/23/24 (Benadryl) finasteride 5 mg tablet 5 mg PO DAILY 02/04/20 01/23/24 magnesium oxide 400 mg PO BEDTIME 02/04/20 01/23/24 midodrine 5 mg tablet 5 mg PO ONCE 04/30/21 01/23/24 Allergies Allergy/AdvReac Type Severity Reaction Status Date / Time furosemide [From Lasix] AdvReac ADR-Cramping Verified 01/23/24 08:20 of the Muscles Review of Systems 2 General: Reports: 10 or more systems reviewed and unremarkable except in HPI and below PFSH ED 2 PFSH: Medical History Gastritis Diverticulosis Multiple myeloma Peripheral neuropathy Orthostatic hypertension History of femur fracture pins placed Surgical History Status post colonoscopy with polypectomy Family History Mother , AT AGE 82 Cancer PANCREATIC Father , AT AGE 74 Cancer PROSTATE Brother Cancer Colon cancer Grandmother Cancer Social History Smoking and tobacco/nicotine status: former use of tobacco/nicotine Alcohol intake: never Substance/Drug Use: never Adopted: No Caregiver/support person: No Lives independently: No Household members: spouse Marital status: Current occupational status: retired Current gender identity: Male Physical Exam 2 Const: COMMON NORMALS: no acute distress, average body habitus, patient oriented x3, no limitations, healthy appearing, alert and well nourished HENMT: COMMON NORMALS: normocephalic, atraumatic, hearing grossly normal bilaterally, external ears normal, Normal external nose present and moist oral mucous membranes HEAD & SCALP: normocephalic and atraumatic NOSE: Normal external nose present EXTERNAL EAR: Yes external ears normal Neck/C-Spine: COMMON NORMALS: no JVD Chest: COMMONS NORMALS: normal inspection of the chest and normal palpation of entire chest wall Resp: COMMON NORMALS: normal respiratory effort, No retractions, No use of accessory muscles and clear to auscultation bilaterally AUSCULTATION: clear to auscultation bilaterally Cardio: COMMON NORMALS: no JVD, regular rate, regular rhythm, S1 normal heart sound present, S2 normal heart sound present, No gallops present (Cardio), No clicks present (Cardio) and No rub (Cardio); negative for No murmurs present (Cardio) (3/6 systolic ejection murmur) RATE: regular rate RHYTHM: regular rhythm HEART SOUNDS: S1 normal heart sound present and S2 normal heart sound present GI: COMMON NORMALS: Normal to inspection, nondistended, normoactive bowel sounds present, Soft to palpation, non-tender, No hepatosplenomegaly present and no masses PALPATION: Yes Soft to palpation and Yes No hepatosplenomegaly present Neuro: COMMON NORMALS: patient oriented x3 SENSORIUM/ORIENTATION: Yes alert Course 2 Vital Signs: Vital signs: Vital Signs Temperature 98.1 F 07/18/24 22:55 Pulse Rate 110 H 07/18/24 22:55 Respiratory Rate 18 07/18/24 22:55 Blood Pressure 95/62 07/18/24 22:55 Pulse Oximetry 88 L 07/18/24 22:55 Oxygen Delivery Me thod Room Air 07/18/24 22:55 MDM - Nausea/Vomiting/Diarrhea Medical Decision Making Physical exam was performed showed minimal if any abdominal pain, lab work was obtained which was essentially benign. Patient said he was feeling better. Patient be discharged home and [facility] get an [facility] with a [facility] doctor for this condition. Medical Records I reviewed the patient's medical records. Lab Data I reviewed the patient's lab results. 07/18/24 23:11 07/18/24 23:32 Laboratory Results WBC 8.31 10^3/uL (3.29-11.43) 07/18/24 23:11 RBC 3.65 10^6/uL (3.85-5.65) L 07/18/24 23:11 Hgb 11.70 g/dL (11.27-16.99) 07/18/24 23:11 Hct 36.3 % (37-53) L 07/18/24 23:11 MCV 99.5 fl (82-101) 07/18/24 23:11 MCH 32.1 pg (27-33) 07/18/24 23:11 MCHC 32.2 g/dL (30-55) 07/18/24 23:11 RDW 13.3 % (12.1-15.1) 07/18/24 23:11 Plt Count 151 10^3/cmm (157-399) L 07/18/24 23:11 MPV 12.3 fL (7.4-10.4) H 07/18/24 23:11 Neut % (Auto) 94.0 % 07/18/24 23:11 Lymph % (Auto) 3.2 % 07/18/24 23:11 [place] % (Auto) 1.4 % 07/18/24 23:11 Eos % (Auto) 0.4 % 07/18/24 23:11 Baso % (Auto) 0.5 % 07/18/24 23:11 Neut # (Auto) 7.81 10^3/uL (1.8-7.7) H 07/18/24 23:11 Lymph # (Auto) 0.3 10^3/uL (0.8-4.8) L 07/18/24 23:11 [place] # (Auto) 0.1 10^3/uL (0.2-0.9) L 07/18/24 23:11 Eos # (Auto) 0.0 10^3/uL (0.0-0.8) 07/18/24 23:11 Baso # (Auto) 0.0 10^3/uL (0.0-0.1) 07/18/24 23:11 Nucleated RBC % (auto) 0 % 07/18/24 23:11 Nucleated RBCs # 0.0 /100WBC 07/18/24 23:11 Sodium 143 mmol/L (136-145) 07/18/24 23:32 Potassium 3.5 mmol/L (3.5-5.1) 07/18/24 23:32 Chloride 109 mmol/L (98-107) H 07/18/24 23:32 Carbon Dioxide 24 mmol/L (22-29) 07/18/24 23:32 Anion Gap 13.5 (5-19) 07/18/24 23:32 BUN 19 mg/dL (8-23) 07/18/24 23:32 Creatinine 1.0 mg/dL (0.7-1.2) 07/18/24 23:32 GFR Calculation Not Reportable 07/18/24 23:32 Glucose 102 mg/dL (65-115) 07/18/24 23:32 Calculated Osmolality 298 mOsm/kg (285-295) H 07/18/24 23:32 Calcium 8.9 mg/dL (8.5-10.5) 07/18/24 23:32 Magnesium 1.6 mg/dL (1.7-2.3) L 07/18/24 23:32 Total Bilirubin 1.0 mg/dL (0.15-1.2) 07/18/24 23:32 AST 23 U/L (0-40) 07/18/24 23:32 ALT 13 U/L (0-41) 07/18/24 23:32 Alkaline Phosphatase 129 U/L (40-130) 07/18/24 23:32 Total Protein 6.1 g/dL (6.6-8.7) L 07/18/24 23:32 Albumin 3.4 g/dL (3.5-5.2) L 07/18/24 23:32 Globulin 2.7 g/dL (1.3-4.6) 07/18/24 23:32 Lipase 25 U/L (13-60) 07/18/24 23:32 Urine Color Yellow (Yellow) 07/18/24 23:34 Urine Appearance Clear (CLEAR) 07/18/24 23:34 Urine pH 5.0 (5-7) 07/18/24 23:34 Ur Specific [place] 1.019 (1.005-1.030) 07/18/24 23:34 Urine Protein Trace (Negative) A 07/18/24 23:34 Urine Glucose (UA) Negative (Normal) 07/18/24 23:34 Urine Ketones Negative (Negative) 07/18/24 23:34 Urine Blood Negative (Negative) 07/18/24 23:34 Urine Nitrate Negative (Negative) 07/18/24 23:34 Urine Bilirubin Negative (Negative) 07/18/24 23:34 Urine Urobilinogen 0.2 mg/dL (Negative) 07/18/24 23:34 Ur Leukocyte Esterase Negative (Negative) 07/18/24 23:34 Urine RBC 0-2 /hpf (0-2) 07/18/24 23:34 Urine WBC 0-5 /hpf (0-5) 07/18/24 23:34 Ur Squamous Epith Cells 0-5 /hpf (0-5) 07/18/24 23:34 Calcium Oxalate Crystal 0-4 /hpf H 07/18/24 23:34 Amorphous Sediment Not Reportable 07/18/24 23:34 Urine Bacteria None seen /hpf (NONE) 07/18/24 23:34 Hyaline Casts 4.95 /lpf 07/18/24 23:34 All radiology interpretation(s) finalized by discharge Discharge Plan Discharge Patient Disposition: Home Clinical Impression: Abdominal pain Qualifiers: Abdominal location: unspecified location Qualified Code(s): R10.9 - Unspecified abdominal pain Condition: Stable Prescriptions: No Action pregabalin [Lyrica] 75 mg capsule 75 mg PO TID Complete Multivitamin Tablet 1 tab PO DAILY aspirin [Adult Low Dose Aspirin] 81 mg tablet,delayed release (DR/EC) 81 mg PO DAILY Hold Instructions: Resume on 02/11/20. potassium chloride 10 mEq tablet extended release See Rx Instructions .ROUTE .COMPLEX Rx Instructions: 10 mEq orally IN THE AFTERNOON midodrine 5 mg tablet 5 mg PO ONCE Tylenol Extra Strength 500 mg Tablet 1,000 mg PO PRN Benadryl 25 mg Capsule 25 mg PO BEDTIME PRN (Reason: Sleep) magnesium oxide 400 mg magnesium Tablet 400 mg PO BEDTIME finasteride 5 mg tablet 5 mg PO DAILY Discharge Orders: Discharge ED (Routine); Ordered 07/19/24 Ordered By: Mainor De Leon Referrals: Emma Parks MD [Primary Care Provider] - 1 week Patient Instructions: Abdominal Pain (ED) Activity Restrictions/Additional Instructions: Thank you for choosing [facility] for your healthcare needs today. Please realize that you were seen in the emergency department and that we are providing you with an emergency medical screening exam and this may not be a complete and all exclusive of all testing and/or medical workup we may need to determine your element or severity of your illness. It is very important that you follow-up as instructed with your primary care provider or specialist for the additional evaluation and to discuss your medical treatment plan. You may return to the emergency department should you have concerns or if your condition changes or worsens in any way. 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
[2024-07-18 23:23] LABS: Basophils % 0.5 %; Eosinophils % 0.4 %; Hematocrit 36.3 % (37-53); Lymphocytes # 0.3 10^3/uL (0.8-4.8); Lymphocytes % 3.2 %; Mean Corpuscular HGB Conc 32.2 g/dL (30-55); Mean Corpuscular Hemoglobin 32.1 pg (27-33); Mean Corpuscular Volume 99.5 fl (82-101); Mean Platelet Volume 12.3 fL (7.4-10.4); Monocytes # 0.1 10^3/uL (0.2-0.9); Monocytes % 1.4 %; Neutrophils # 7.81 10^3/uL (1.8-7.7); Nucleated Red Blood Cells % 0 %; Platelet Count 151 10^3/cmm (157-399); Red Blood Count 3.65 10^6/uL (3.85-5.65); Red Cell Distribution Width 13.3 % (12.1-15.1); White Blood Count 8.31 10^3/uL (3.29-11.43)
[2024-07-18 23:44] LABS: Bilirubin Urine Negative (Negative); Blood Urine Negative (Negative); Glucose Urine UA Negative (Normal); Ketones Urine Negative (Negative); Leukocyte Esterase Urine Negative (Negative); Nitrate Urine Negative (Negative); Protein Urine Trace (Negative); Specific Gravity, Urine 1.019 (1.005-1.030); Urine Appearance Clear (CLEAR); Urine Color Yellow (Yellow); Urobilinogen Urine 0.2 mg/dL (Negative)
[2024-07-18 23:58] LABS: Alanine Aminotransferase 13 U/L (0-41); Albumin Level 3.4 g/dL (3.5-5.2); Alkaline Phosphatase 129 U/L (40-130); Anion Gap 13.5 (5-19); Aspartate Amino Transferase 23 U/L (0-40); Blood Urea Nitrogen 19 mg/dL (8-23); Calcium 8.9 mg/dL (8.5-10.5); Carbon Dioxide 24 mmol/L (22-29); Chloride 109 mmol/L (98-107); Creatinine Clr Calc Pharmacy 81.0605; Globulin 2.7 g/dL (1.3-4.6); Glucose 102 mg/dL (65-115); Lipase 25 U/L (13-60); Magnesium 1.6 mg/dL (1.7-2.3); Osmolality Calculated 298 mOsm/kg (285-295); Potassium 3.5 mmol/L (3.5-5.1); Sodium 143 mmol/L (136-145); Total Protein 6.1 g/dL (6.6-8.7)
[2024-07-19] VITALS: BP 86/52; PULSE 100; O2SAT 92
[2024-07-19 00:08] LABS: Add Urine Microscopic? YES; Bacteria Urine None Seen /hpf; Calcium Oxalate Crystals Urine 0-4 /hpf; Hyaline Casts Urine 4.95 /lpf; RBC Urine 0-2 /hpf (0-2); Squamous Epithelial Cell Urine 0-5 /hpf (0-5); WBC Urine 0-5 /hpf (0-5)
[2024-07-19 00:33] VITALS: BP 90/55; PULSE 101; O2SAT 92
[2024-07-19 01:10] VITALS: BP 112/65; PULSE 101; O2SAT 95
[2024-07-19 01:37] VITALS: BP 110/60; PULSE 98; O2SAT 93
== END 2024-07-19 01:39 | disposition home or self-care (01) ==
PROVIDERS: Emergency Provider Emergency Medicine; PCP Family Medicine
DX: R10.9 Unspecified abdominal pain (principal); Z87.891 Personal history of nicotine dependence; I10 Essential (primary) hypertension
CPT/HCPCS: 36415; 80053; 81001; 83690; 83735; 85025; 99283

== ENCOUNTER → 2024-10-21 08:58 | Outpatient (BNVA) | payer OTHER, SELFPAY | PROVIDERS: PCP Family Medicine; Visit Provider Podiatrist Foot & Ankle Surgery | DX: I73.9 Peripheral vascular disease, unspecified (principal); L60.3 Nail dystrophy; L84 Corns and callosities; M21.611 Bunion of right foot; M21.612 Bunion of left foot | CPT/HCPCS: 11056; 11721; 99214 ==

== ENCOUNTER → 2025-01-20 08:44 | Outpatient (BNVA) | payer OTHER, SELFPAY | PROVIDERS: PCP Family Medicine; Visit Provider Podiatrist Foot & Ankle Surgery | DX: I73.9 Peripheral vascular disease, unspecified (principal); L60.8 Other nail disorders; L84 Corns and callosities; L60.3 Nail dystrophy; M79.671 Pain in right foot; M79.672 Pain in left foot; M21.611 Bunion of right foot; M21.612 Bunion of left foot | CPT/HCPCS: 11056; 11721 ==

== ENCOUNTER → 2025-04-21 08:53 | Outpatient (BNVA) | payer OTHER, SELFPAY | PROVIDERS: PCP Family Medicine; Visit Provider Podiatrist Foot & Ankle Surgery | DX: I73.9 Peripheral vascular disease, unspecified (principal); L60.3 Nail dystrophy; L84 Corns and callosities; L60.8 Other nail disorders | CPT/HCPCS: 11056; 11721 ==

== ENCOUNTER → 2025-07-21 09:04 | Outpatient (BNVA) | payer OTHER, SELFPAY | PROVIDERS: PCP Family Medicine; Visit Provider Podiatrist Foot & Ankle Surgery | DX: E11.8 Type 2 diabetes mellitus with unspecified complications (principal); L60.3 Nail dystrophy; L84 Corns and callosities; L60.8 Other nail disorders; I73.9 Peripheral vascular disease, unspecified | CPT/HCPCS: 11056; 11721 ==